=== PATIENT | male | born 1995 | race Caucasian/White ===

== ENCOUNTER 2020-12-10 20:45 | Inpatient (IN) | payer OTHER, SELFPAY ==
[2020-12-10] VITALS (10 sets, daily range): BP systolic 147–162; BP diastolic 70–96; PULSE 82–112; RESP 20–32; TEMP 36.2; O2SAT 96–100; BMI 26.3
--- NOTE | 2020-12-10 20:53 | DI.CT.S_ITS ---
PROCEDURE: CT CERVICAL SPINE WO CON INDICATIONS: Trauma TECHNIQUE: Noncontrast 3 mm thick sections acquired from the skull base to the T4 level. Sagittal and coronal reformats were then constructed. For radiation dose reduction, the following was used: automated exposure control, adjustment of mA and/or kV according to patient size. COMPARISON: None. FINDINGS: Image quality: Excellent. Bones: No fractures or dislocations. Visualized superior ribs are intact. Soft tissues: Small left apical pneumothorax. Left 6th rib fracture at the costovertebral junction. IMPRESSION: No cervical spine fracture Small left apical pneumothorax Left 6th rib fracture at the costovertebral junction. Dictated by: Bryson Mejía M.D. on 12/10/2020 at 21:55 Approved by: Bryson Mejía M.D. on 12/10/2020 at 21:58
--- NOTE | 2020-12-10 20:53 | DI.CT.S_ITS ---
PROCEDURE: CT CHEST ABD PEL W CON INDICATIONS: Trauma TECHNIQUE: After the administration of intravenous contrast, 5 mm thick sections acquired from the lung apices to the symphysis. 2.5 mm thick coronal and sagittal reformats were acquired. Additional 7 mm thick coronal maximum intensity projection (MIP) reformats acquired through the lungs. Optional 10-minute delayed imaging may be performed from the kidneys to the bladder. For radiation dose reduction, the following was used: automated exposure control, adjustment of mA and/or kV according to patient size. COMPARISON: None. FINDINGS: Image quality: Excellent. CHEST: Lungs: Small apical left pneumothorax. No pleural effusion. Left patchy opacity in the lower lobe, probably contusion. Mediastinum: No mediastinal hematomas. Heart size is normal. No pericardial effusion. Thoracic aorta and pulmonary arteries demonstrate normal size and enhancement. No mediastinal or hilar adenopathy. Esophagus is normal in caliber. No hiatal hernia. Chest wall: Nondisplaced fracture involving the left 6th rib, at the costovertebral junction image 118/3. ABDOMEN: Solid organs: Liver is normal in size and enhancement, without lacerations. The gallbladder is grossly unremarkable. Biliary system is non-dilated. Pancreas enhances normally, without transection. Spleen is normal in size and enhancement, without lacerations. No adrenal hematomas. Both kidneys enhance normally, without hydronephrosis or lacerations. Peritoneum and bowel: No free fluid or air. Unenhanced bowel loops demonstrate normal wall thickness and caliber. Nodes and vessels: No retroperitoneal or mesenteric adenopathy. Aorta and inferior vena cava are normal in size and enhancement. Miscellaneous: No ventral hernias. PELVIS: Genitourinary: Bladder wall thickness is normal. Miscellaneous: No inguinal hernias or adenopathy. Bones: Pelvic ring and hip joints appear intact. No vertebral compression fractures. IMPRESSION: Nondisplaced left 6th rib fracture at the costovertebral junction. Small apical left pneumothorax. Additional patchy opacity in the left lower lobe probably represents contusion and/or atelectasis. Findings were personally telephoned and discussed with Dr. William in the emergency department at 2200 hours 12/10/20. Dictated by: Bryson Mejía M.D. on 12/10/2020 at 21:58 Approved by: Bryson Mejía M.D. on 12/10/2020 at 22:06
--- NOTE | 2020-12-10 20:53 | DI.CT.S_ITS ---
PROCEDURE: CT HEAD/BRAIN WO CON INDICATIONS: Trauma TECHNIQUE: Noncontrast 4.5 mm thick angled axial sections acquired from the foramen magnum to the vertex, with coronal and sagittal reformats. For radiation dose reduction, the following was used: automated exposure control, adjustment of mA and/or kV according to patient size. COMPARISON: None. FINDINGS: Image quality: Excellent. CSF spaces: Basal cisterns are patent. No extra-axial fluid collections. Ventricles are normal in size and shape. Brain: No midline shift. No intracranial masses or hemorrhage. Lindsey-white matter interface is normal. Skull and face: Calvarium and visualized facial bones are intact, without suspicious lesions. Sinuses: Visualized sinuses and mastoids are clear. IMPRESSION: No acute intracranial process. Dictated by: Bryson Mejía M.D. on 12/10/2020 at 21:53 Approved by: Bryson Mejía M.D. on 12/10/2020 at 21:55
[2020-12-10] MEDS: ONDANSETRON 4 MG/2 ML INJ IV (21:07)
[2020-12-10] MEDS: HYDROMORPHONE 0.5 MG INJ IV ×2 (21:07→21:18)
[2020-12-10 21:09] LABS: Add Manual Diff / Slide Review NO; Basophils Absolute Auto 0 /uL (0-100); Basophils Percent Auto 0.2 % (0-2); Eosinophils Absolute Auto 0 /uL (0-450); Eosinophils Percent Auto 0.1 % (2-4); Hematocrit 45.9 % (41-53); Hemoglobin 15.3 g/dL (13.5-17.5); Lymphocytes Absolute Auto 1400 /uL (1100-4500); Lymphocytes Percent Auto 6.8 % (25-40); Mean Corpuscular HGB Conc 33.3 % (30-36); Mean Corpuscular Hemoglobin 30.2 PG (26-34); Mean Corpuscular Volume 90.9 fL (80-100); Monocytes Absolute Auto 1400 /uL (0-900); Monocytes Percent Auto 6.9 % (3-14); Neutrophils Absolute Auto 17200 /uL (1500-7000); Platelet Count 341 X10^3/uL (150-400); Red Blood Cell Count 5.05 X10^6/uL (4.5-5.9); Red Cell Distribution Width 13.1 % (11.6-14.8)
--- NOTE | 2020-12-10 21:09 | PC.NURSE ---
Pt's yellow metal necklace, cell phone and wallet given to friend at bedside at time of admission.
[2020-12-10 21:17] LABS: INR 1.1 (0.9-1.3); Prothrombin Time 12.2 SECONDS (10.1-12.7)
[2020-12-10 21:19] LABS: Creatine Kinase 337 U/L (55-170)
[2020-12-10 21:20] LABS: Alanine Aminotransferase 52 IU/L (<50); Albumin 4.8 g/dL (3.5-5.0); Albumin Globulin Ratio 1.7 (1.0-2.8); Alkaline Phosphatase 75 U/L (38-126); Aspartate Aminotransferase 54 IU/L (17-59); BUN Creatinine Ratio 20.2 (6-22); Bilirubin Total 0.3 mg/dL (0.2-1.3); Blood Urea Nitrogen 19 mg/dL (9-20); Calcium 10.2 mg/dL (8.4-10.2); Carbon Dioxide 28 mmol/L (22-32); Chloride 103 mmol/L (98-107); Estimated Glomerular Filt Rate > 60.0 mL/min (>60); Ethanol (ETOH) < 10 mg/dL; Globulin 2.9 g/dL (1.7-4.1); Glucose 116 mg/dL (70-100); HEMOLYSIS 16 (0-50); Lipase 147 U/L (23-300); Potassium 4.1 mmol/L (3.4-5.1); Sodium 138 mmol/L (137-145); Total Protein 7.7 g/dL (6.3-8.2)
[2020-12-10 21:32] LABS: Troponin I < 0.012 ng/mL (0.01-0.034)
[2020-12-10 21:35] LABS: CKMB % Relative Index 0.4 % (1.5-5.0); Creatine Kinase MB 1.37 ng/mL (<2.37)
[2020-12-10] MEDS: HYDROMORPHONE 1 MG INJ IV (21:37)
--- NOTE | 2020-12-10 21:42 | ED.TRAUMA ---
HPI - Trauma General Chief Complaint: Trauma Stated Complaint: fall down 15 to 20 stairs, ribs hurt Time Seen by Provider: 12/10/20 20:46 Source: patient Mode of arrival: Wheelchair Limitations: no limitations History of Present Illness HPI narrative: 25M nonsmoker without medical problems presents with a friend in the chief complaint of a fall down 15-20 stairs. He was at the top of his front porch stairs and tripped, falling down to the bottom. He denies any prodromal symptoms such as dizziness, weakness or lightheadedness. He did strike his head but denies any loss of consciousness and has full recall. He denies any alcohol or street drugs. He denies the use of blood thinners. He is activated as a modified trauma based on mechanism. His chief complaint is of significant pain in left posterior shoulder, posterior ribs and left hip. He denies any chest pain or shortness of breath. He denies any nausea or vomiting. He denies any abdominal pain or urinary complaints. MD complaint: fall, injury and pain Onset (ago): minute(s) Loss of Consciousness: no Location: head and back Location - Extremities: Left: shoulder Severity: severe Context: fall Associated symptoms: shortness of breath Related Data Home Medications Medication Instructions Recorded Confirmed bupropion HCl [Wellbutrin XL] 150 mg PO QAM 12/10/20 12/10/20 Allergies Allergy/AdvReac Type Severity Reaction Status Date / Time No Known Drug Allergies Allergy Verified 12/10/20 20:56 Review of Systems Constitutional Constitutional: Denies chills, Denies fatigue, Denies fever(s), Denies frequent falls, Reports headache(s), Denies lethargy and Denies weakness Eyes Eyes: Denies change in vision, Denies eye discharge, Denies irritation and Denies loss of vision ENT Ears, Nose, Mouth, and Throat: Denies change in voice, Denies dizziness, Reports headache(s), Denies neck pain, Denies sore throat and Denies throat swelling Cardiovascular Cardiovascular: Reports chest pain, Denies irregular heart rhythm, Denies lightheadedness, Denies palpitations, Reports dyspnea, Denies dyspnea on exertion and Denies orthopnea Respiratory Respiratory: Denies cough, Reports dyspnea, Denies dyspnea on exertion and Denies wheezing Gastrointestinal Gastrointestinal: Denies abdominal pain, Denies change in bowel habits, Denies diarrhea, Denies nausea and Denies vomiting Musculoskeletal Musculoskeletal: Reports abnormal gait, Reports back pain, Reports arthralgias, Denies neck pain and Denies numbness Integumentary/Breasts Skin/Breast: Denies pruritus, Denies erythema, Denies rash and Denies wounds Neurologic Neurologic: Reports abnormal gait, Denies behavioral changes, Denies confusion, Denies dizziness, Denies frequent falls, Reports headache(s), Denies loss of vision, Denies numbness and Denies weakness Psychiatric Psychiatric: Denies anxiety, Denies behavioral changes, Denies confusion, Denies depression, Denies homicidal ideation and Denies suicidal ideation Endocrine Endocrine: Denies fatigue, Denies flushing and Denies palpitations Hematologic/Lymphatic Hematologic/Lymphatic: Denies easy bruising Allergic/Immunologic Allergic/Immunologic: Denies urticaria, Denies throat swelling and Denies wheezing Patient History Social History Smoking Status: Never smoker Smoking Status: Never smoker alcohol intake frequency: 0-2 drinks per day Substance Use Type: does not use Exam Narrative Exam Narrative: GENERAL: [25] year old patient appears stated age. Well-nourished, well-developed patient, in obvious distress. GCS 15 HEAD: Abrasion to middle of forehead, no active bleeding or laceration. No evidence of depressed skull fracture EYES: Pupils equal round and reactive. No hyphema Extraocular motions intact. No scleral icterus. No injection or drainage. ENT: Nose without bleeding, purulent drainage. No nasal septal hematoma or hemotympanum Throat without erythema, tonsillar hypertrophy or exudate. Airway patent. NECK: Trachea midline. Non tender CARDIOVASCULAR: Regular rate and rhythm without murmurs, gallops, or rubs. RESPIRATORY: Clear to auscultation. Breath sounds equal bilaterally. No wheezes, rales, or rhonchi. Patient splinting, deep breath causing significant pain, left posterior rib tenderness to palpation GASTROINTESTINAL: Abdomen soft, non-tender, nondistended. EXTREMITIES: Decreased range of motion of left shoulder and left hip secondary to pain. No obvious deformity. No numbness, tingling or weakness. BACK: Nontender without deformity or crepitance. No flank tenderness. NEURO: AOx3. SKIN: No rash or erythema of visible areas Initial Vital Signs Initial Vital Signs: Vital Signs Temperature 97.1 F L 12/10/20 20:45 Pulse Rate 112 H 12/10/20 20:45 Respiratory Rate 30 H 12/10/20 20:45 Blood Pressure 148/96 H 12/10/20 20:45 Pulse Oximetry 100 12/10/20 20:45 Course Course Course Narrative: FAST exam demonstrates no free fluid Orders Ordered: ED Orders 12/10/20 20:52 EKG-12 Lead Stat 12/10/20 20:53 CT cervical spine wo con Stat CT chest abd pel w con Stat CT head/brain wo con Stat 12/10/20 20:58 Complete Blood Count AUTO DIFF Stat Comprehensive Metabolic Panel Stat Ethanol (ETOH) Stat Lipase Stat Prothrombin Time INR Stat Troponin & CK Cardiac Panel Stat Type and Screen Stat 12/10/20 22:31 XR chest 1V Stat Acetaminophen (Acetaminophen 325 Mg Tablet) 650 mg PO Q6HR CLARI Docusate Sodium (Docusate 100 Mg Capsule) 100 mg PO BID CLARI Hydromorphone HCl (Hydromorphone 0.5 Mg Inj) 0.5 mg IV Q4HR PRN PRN Reason: Pain, Moderate (4-6) Ibuprofen (Ibuprofen 600 Mg Tablet) 600 mg PO Q6HR PRN PRN Reason: Fever/Mild Pain (1-3) Naloxone HCl (Naloxone 0.4 Mg/Ml Vial) 0.2 mg IV Q2MIN PRN PRN Reason: Opiate Reversal Ondansetron HCl (Ondansetron 4 Mg/2 Ml Inj) 4 mg IV Q6HR PRN PRN Reason: Nausea And Vomiting Oxycodone HCl (Oxycodone Ir 10 Mg Tablet) 10 mg PO Q4HR PRN PRN Reason: Pain, Severe (7-10) Oxycodone HCl (Oxycodone Ir 5 Mg Tablet) 5 mg PO Q4HR PRN PRN Reason: Pain, Moderate (4-6) Polyethylene Glycol (Polyethylene Glycol 3350 17 Gm Powd.Pack) 17 gm PO DAILY CLARI Sennosides (Sennosides 8.6 Mg Tablet) 17.2 mg PO BEDTIME CLARI Discontinued Medications Diphenhydramine HCl (Diphenhydramine 50 Mg/Ml Vial) 25 mg IV NOW ONE Stop: 12/10/20 22:04 Last Admin: 12/10/20 22:09 Dose: 25 mg Documented by: HOLGER Hydromorphone HCl (Hydromorphone 0.5 Mg Inj) 0.5 mg IV NOW ONE Stop: 12/10/20 21:02 Last Admin: 12/10/20 21:07 Dose: 0.5 mg Documented by: HOLGER Hydromorphone HCl (Hydromorphone 0.5 Mg Inj) 0.5 mg IV NOW ONE Stop: 12/10/20 21:11 Last Admin: 12/10/20 21:18 Dose: 0.5 mg Documented by: HOLGER Hydromorphone HCl (Hydromorphone 1 Mg Inj) 1 mg IV NOW ONE Stop: 12/10/20 21:32 Last Admin: 12/10/20 21:37 Dose: 1 mg Documented by: HOLGER Ondansetron HCl (Ondansetron 4 Mg/2 Ml Inj) 4 mg IV NOW ONE Stop: 12/10/20 21:02 Last Admin: 12/10/20 21:07 Dose: 4 mg Documented by: HOLGER Vital Signs Vital signs: Vital Signs - 8 hr 12/10/20 20:45 12/10/20 20:54 12/10/20 21:00 Temperature 97.1 F L Pulse Rate 112 H 95 H 101 H Respiratory Rate 30 H 28 H 26 H Blood Pressure 148/96 H 162/79 H Pulse Oximetry 100 98 98 12/10/20 21:20 12/10/20 21:22 12/10/20 21:30 Temperature Pulse Rate 97 H 89 96 H Respiratory Rate 32 H 25 H 25 H Blood Pressure 151/78 H 161/76 H Pulse Oximetry 98 98 12/10/20 21:45 12/10/20 22:00 12/10/20 22:14 Temperature Pulse Rate 88 86 82 Respiratory Rate 20 22 31 H Blood Pressure 153/70 H 151/70 H Pulse Oximetry 96 96 97 12/10/20 22:15 Temperature Pulse Rate Respiratory Rate Blood Pressure 147/72 H Pulse Oximetry MDM - Trauma Lab Data Result diagrams: 12/10/20 20:58 12/10/20 20:58 Labs: Lab Results 12/10/20 12/10/20 12/10/20 Range/Units 20:58 20:58 20:58 WBC 20.0 H (4.5-11.0) X10^3/uL RBC 5.05 (4.5-5.9) X10^6/uL Hgb 15.3 (13.5-17.5) g/dL Hct 45.9 (41-53) % MCV 90.9 (80-100) fL MCH 30.2 (26-34) PG MCHC 33.3 (30-36) % RDW 13.1 (11.6-14.8) % Plt Count 341 (150-400) X10^3/uL Neut % (Auto) 86.0 H (50-75) % Lymph % (Auto) 6.8 L (25-40) % Heard % (Auto) 6.9 (3-14) % Eos % (Auto) 0.1 L (2-4) % Baso % (Auto) 0.2 (0-2) % Neut # (Auto) 38378 H (7334-0552) /uL Lymph # (Auto) 1400 (2877-1019) /uL Heard # (Auto) 1400 H (0-900) /uL Eos # (Auto) 0 (0-450) /uL Baso # (Auto) 0 (0-100) /uL PT 12.2 (10.1-12.7) SECONDS INR 1.1 (0.9-1.3) Sodium (137-145) mmol/L Potassium (3.4-5.1) mmol/L Chloride (98-107) mmol/L Carbon Dioxide (22-32) mmol/L BUN (9-20) mg/dL Creatinine (0.66-1.25) mg/dL Estimated GFR (>60) mL/min BUN/Creatinine Ratio (6-22) Glucose (70-100) mg/dL Calcium (8.4-10.2) mg/dL Total Bilirubin (0.2-1.3) mg/dL AST (17-59) IU/L ALT (<50) IU/L Alkaline Phosphatase (38-126) U/L Total Creatine Kinase 337 H (55-170) U/L CK-MB (CK-2) 1.37 (<2.37) ng/mL CK-MB (CK-2) Rel Index 0.4 L (1.5-5.0) % Troponin I < 0.012 (0.01-0.034) ng/mL Total Protein (6.3-8.2) g/dL Albumin (3.5-5.0) g/dL Globulin (1.7-4.1) g/dL Albumin/Globulin Ratio (1.0-2.8) Lipase (23-300) U/L Ethyl Alcohol ( - 10) mg/dL Blood Type Antibody Screen 12/10/20 12/10/20 Range/Units 20:58 20:58 WBC (4.5-11.0) X10^3/uL RBC (4.5-5.9) X10^6/uL Hgb (13.5-17.5) g/dL Hct (41-53) % MCV (80-100) fL MCH (26-34) PG MCHC (30-36) % RDW (11.6-14.8) % Plt Count (150-400) X10^3/uL Neut % (Auto) (50-75) % Lymph % (Auto) (25-40) % Heard % (Auto) (3-14) % Eos % (Auto) (2-4) % Baso % (Auto) (0-2) % Neut # (Auto) (0222-9705) /uL Lymph # (Auto) (7728-4548) /uL Heard # (Auto) (0-900) /uL Eos # (Auto) (0-450) /uL Baso # (Auto) (0-100) /uL PT (10.1-12.7) SECONDS INR (0.9-1.3) Sodium 138 (137-145) mmol/L Potassium 4.1 (3.4-5.1) mmol/L Chloride 103 (98-107) mmol/L Carbon Dioxide 28 (22-32) mmol/L BUN 19 (9-20) mg/dL Creatinine 0.94 (0.66-1.25) mg/dL Estimated GFR > 60.0 (>60) mL/min BUN/Creatinine Ratio 20.2 (6-22) Glucose 116 H (70-100) mg/dL Calcium 10.2 (8.4-10.2) mg/dL Total Bilirubin 0.3 (0.2-1.3) mg/dL AST 54 (17-59) IU/L ALT 52 H (<50) IU/L Alkaline Phosphatase 75 (38-126) U/L Total Creatine Kinase (55-170) U/L CK-MB (CK-2) (<2.37) ng/mL CK-MB (CK-2) Rel Index (1.5-5.0) % Troponin I (0.01-0.034) ng/mL Total Protein 7.7 (6.3-8.2) g/dL Albumin 4.8 (3.5-5.0) g/dL Globulin 2.9 (1.7-4.1) g/dL Albumin/Globulin Ratio 1.7 (1.0-2.8) Lipase 147 (23-300) U/L Ethyl Alcohol < 10 ( - 10) mg/dL Blood Type O Negative Antibody Screen Negative Urine Dip Bedside Urine Glucose Negative Bedside Urine Bilirubin - Negative Bedside Urine Ketone - Negative Urine Specific Marshall 1.015 Bedside Urine Occult Blood - Negative Bedside Urine pH 6.5 Bedside Urine Protein - Negative Bedside Urine Urobilinogen - Negative Bedside Urine Nitrite - Negative Bedside Urine Leukocytes - Negative Esterase Imaging Data CT scan - head: Radiologist's Impression: [address] [id number] Scan ReportSigned Patient: Tony Jon KMR#: [id number]: 1995Acct:[id number]/Sex: 25 / MDate of Service: 12/10/20Loc: EDAccession Number: [id number] Procedure: CT head/brain wo con Ordering Provider: Mt William D.O. PROCEDURE: CT HEAD/BRAIN WO CON INDICATIONS: Trauma TECHNIQUE: Noncontrast 4.5 mm thick angled axial sections acquired from the foramen magnum to the vertex, with coronal and sagittal reformats. For radiation dose reduction, the following was used: automated exposure control, adjustment of mA and/or kV according to patient size. COMPARISON: None. FINDINGS: Image quality: Excellent. CSF spaces: Basal cisterns are patent. No extra-axial fluid collections. Ventricles are normal in size and shape. Brain: No midline shift. No intracranial masses or hemorrhage. Lindsey-white matter interface is normal. Skull and face: Calvarium and visualized facial bones are intact, without suspicious lesions. Sinuses: Visualized sinuses and mastoids are clear. IMPRESSION: No acute intracranial process. Dictated by: Bryson Mejía M.D. on 12/10/2020 at 21:53 Approved by: Bryson Mejía M.D. on 12/10/2020 at 21:55 CT - cervical spine: Radiologist's Impression: [address] [id number] Scan ReportSigned Patient: Tony Jon KMR#: [id number]: 1995Acct:[id number]/Sex: 25 / MDate of Service: 12/10/20Loc: EDAccession Number: [id number] Procedure: CT cervical spine wo con Ordering Provider: Mt William D.O. PROCEDURE: CT CERVICAL SPINE WO CON INDICATIONS: Trauma TECHNIQUE: Noncontrast 3 mm thick sections acquired from the skull base to the T4 level. Sagittal and coronal reformats were then constructed. For radiation dose reduction, the following was used: automated exposure control, adjustment of mA and/or kV according to patient size. COMPARISON: None. FINDINGS: Image quality: Excellent. Bones: No fractures or dislocations. Visualized superior ribs are intact. Soft tissues: Small left apical pneumothorax. Left 6th rib fracture at the costovertebral junction. IMPRESSION: No cervical spine fracture Small left apical pneumothorax Left 6th rib fracture at the costovertebral junction. Dictated by: Bryson Mejía M.D. on 12/10/2020 at 21:55 Approved by: Bryson Mejía M.D. on 12/10/2020 at 21:58 CT scan - chest: Radiologist's Impression: Tony Jon K 25 M [address] [id number] Scan ReportSigned Patient: Tony Jon KMR#: [id number]: 1995Acct:[id number]/Sex: 25 / MDate of Service: 12/10/20Loc: EDAccession Number: [id number] Procedure: CT chest abd pel w con Ordering Provider: Mt William D.O. PROCEDURE: CT CHEST ABD PEL W CON INDICATIONS: Trauma TECHNIQUE: After the administration of intravenous contrast, 5 mm thick sections acquired from the lung apices to the symphysis. 2.5 mm thick coronal and sagittal reformats were acquired. Additional 7 mm thick coronal maximum intensity projection (MIP) reformats acquired through the lungs. Optional 10-minute delayed imaging may be performed from the kidneys to the bladder. For radiation dose reduction, the following was used: automated exposure control, adjustment of mA and/or kV according to patient size. COMPARISON: None. FINDINGS: Image quality: Excellent. CHEST: Lungs: Small apical left pneumothorax. No pleural effusion. Left patchy opacity in the lower lobe, probably contusion. Mediastinum: No mediastinal hematomas. Heart size is normal. No pericardial effusion. Thoracic aorta and pulmonary arteries demonstrate normal size and enhancement. No mediastinal or hilar adenopathy. Esophagus is normal in caliber. No hiatal hernia. Chest wall: Nondisplaced fracture involving the left 6th rib, at the costovertebral junction image 118/3. ABDOMEN: Solid organs: Liver is normal in size and enhancement, without lacerations. The gallbladder is grossly unremarkable. Biliary system is non-dilated. Pancreas enhances normally, without transection. Spleen is normal in size and enhancement, without lacerations. No adrenal hematomas. Both kidneys enhance normally, without hydronephrosis or lacerations. Peritoneum and bowel: No free fluid or air. Unenhanced bowel loops demonstrate normal wall thickness and caliber. Nodes and vessels: No retroperitoneal or mesenteric adenopathy. Aorta and inferior vena cava are normal in size and enhancement. Miscellaneous: No ventral hernias. PELVIS: Genitourinary: Bladder wall thickness is normal. Miscellaneous: No inguinal hernias or adenopathy. Bones: Pelvic ring and hip joints appear intact. No vertebral compression fractures. IMPRESSION: Nondisplaced left 6th rib fracture at the costovertebral junction. Small apical left pneumothorax. Additional patchy opacity in the left lower lobe probably represents contusion and/or atelectasis. Findings were personally telephoned and discussed with Dr. William in the emergency department at 2200 hours 12/10/20. Dictated by: Bryson Mejía M.D. on 12/10/2020 at 21:58 Approved by: Bryson Mejía M.D. on 12/10/2020 at 22:0 MDM Narrative Medical decision making narrative: 25M trauma patient with fall down 15-20 stairs is hemodynamically stable and not currently requiring supplemental oxygen. He will require hospitalization for serial exams, monitoring, and repeat imaging as his combination of pulmonary contusion and pneumothorax put him at high risk of deterioration. Furthermore, he has required 3 doses of IV pain medication in the ED. Patient admitted to surgical service. Patient understands and agrees with the plan. Questions answered to his apparent satisfaction. Discharge Plan Departure Patient Disposition: Admitted as Observation Clinical Impression: Pneumothorax Qualifiers: Pneumothorax type: traumatic Encounter type: initial encounter Qualified Code(s): S27.0XXA - Traumatic pneumothorax, initial encounter Contusion of left lung Qualifiers: Encounter type: initial encounter Qualified Code(s): S27.321A - Contusion of lung, unilateral, initial encounter Closed rib fracture Qualifiers: Encounter type: initial encounter Rib fracture type: single rib Laterality: left Qualified Code(s): S22.32XA - Fracture of one rib, left side, initial encounter for closed fracture Admit Date/Time: 12/10/20 22:35 Admit Provider: Josee Kaplan
[2020-12-10] MEDS: diphenhydrAMINE 50 MG/ML VIAL 25 MG IV (22:09)
--- NOTE | 2020-12-10 22:16 | PC.NURSE ---
Pt reports pain tolerable at 5/10 but c/o itching. No hives/airway involvement. Dr William notified, order received for benedryl IV. Dr William to bedside to update pt on test results and plan of care.
--- NOTE | 2020-12-10 22:31 | DI.RAD.S_ITS ---
PROCEDURE: XR CHEST 1V INDICATIONS: trauma, rib fx. contusion, pneumo TECHNIQUE: One view of the chest was acquired. COMPARISON: [facility], CT, CT CHEST ABD PEL W CON, 12/10/2020, 20:52. [facility], CR, XR CHEST 2V, 12/11/2020, 8:35. FINDINGS: Surgical changes and devices: None. Lungs and pleura: On this expiratory view, there is low lung volumes seen. A small left apical pneumothorax can be seen. Interstitial prominence is seen throughout which is attributed to expiratory technique. Mediastinum: Mediastinal contours appear normal. Heart size is normal. Bones and chest wall: No suspicious bony lesions. The known left 6th rib fracture is not well seen by plain film. Overlying soft tissues appear unremarkable. IMPRESSION: There is a small left apical pneumothorax, which is slightly increased in size compared to prior imaging. Please consider short-term follow-up. Note: No significant discrepancy from the preliminary report. Dictated by: Mehul Martin M.D. on 12/11/2020 at 7:44 Approved by: Mehul Martin M.D. on 12/11/2020 at 7:46
[2020-12-10 23:10] LABS: COVID19 -Nasal RAPID Negative (Negative)
[2020-12-10] MEDS: OXYCODONE IR 10 MG TABLET PO (23:20)
[2020-12-11] VITALS (8 sets, daily range): BP systolic 130–150; BP diastolic 58–83; PULSE 51–84; RESP 16–20; TEMP 36.2–36.9; O2SAT 95–98
[2020-12-11] MEDS: HYDROMORPHONE 0.5 MG INJ IV ×4 (00:01→10:52)
[2020-12-11] MEDS: ACETAMINOPHEN 325 MG TABLET 650 MG PO ×5 (00:24→23:56)
[2020-12-11] MEDS: LIDOCAINE PATCH 1 EACH ADH..PATCH TOP (01:11)
[2020-12-11] MEDS: IBUPROFEN 600 MG TABLET PO ×2 (02:48→10:51)
[2020-12-11] MEDS: OXYCODONE IR 10 MG TABLET PO ×6 (02:50→23:55)
[2020-12-11] MEDS: diphenhydrAMINE 25 MG TABLET PO ×2 (02:50→18:26)
[2020-12-11] MEDS: HYDROMORPHONE 1 MG INJ IV ×2 (05:33→16:17)
--- NOTE | 2020-12-11 05:42 | PC.NURSE ---
Addendum entered by Kari Morrison R.N. 12/11/20 05:58: Report given to Rachel at 0555. Addendum entered by Kari Morrison R.N. 12/11/20 05:51: Provider contacted to increase or add additional pain medicine to current medication regime, pt unable to tolerate pain w/ rxed at this moment. Provider OKd one time dose 1 mg IV dilaudid. Provider informed this RN that Pt was supposed to have been admitted to the ICU for observation instead of acute care. Coordinator and ICU nurses were notified, and transfer began at 0550. Original Note: Pt stable on admit to floor, able to slowly ambulate from gurney to bed with minimal assistance and no reported dizziness. SOB on exertion, pain on inspiration. Pain localized to L shoulder and ribcage, L hip on ambulation. Pt in no cardiovascular or respiratory distress, +CSM all extremities, LUE weaker than RUE d/t increased pain but no reported numbness or tingling. PERRLA, AOx4, no reported LOC. Pt oriented to room, instructed on hospital policies, and settled.
[2020-12-11 06:09] LABS: Add Manual Diff / Slide Review NO; Basophils Absolute Auto 0 /uL (0-100); Basophils Percent Auto 0.3 % (0-2); Eosinophils Absolute Auto 100 /uL (0-450); Eosinophils Percent Auto 1.1 % (2-4); Hemoglobin 14.5 g/dL (13.5-17.5); Lymphocytes Absolute Auto 2700 /uL (1100-4500); Lymphocytes Percent Auto 21.9 % (25-40); Mean Corpuscular HGB Conc 32.3 % (30-36); Mean Corpuscular Volume 93.1 fL (80-100); Monocytes Absolute Auto 1400 /uL (0-900); Monocytes Percent Auto 10.9 % (3-14); Neutrophils Absolute Auto 8200 /uL (1500-7000); Neutrophils Percent Auto 65.8 % (50-75); Platelet Count 279 X10^3/uL (150-400); Red Blood Cell Count 4.83 X10^6/uL (4.5-5.9); Red Cell Distribution Width 13.5 % (11.6-14.8); White Blood Cell Count 12.4 X10^3/uL (4.5-11.0)
[2020-12-11 06:21] LABS: BUN Creatinine Ratio 16.1 (6-22); Blood Urea Nitrogen 18 mg/dL (9-20); Calcium 9.4 mg/dL (8.4-10.2); Carbon Dioxide 35 mmol/L (22-32); Chloride 100 mmol/L (98-107); Estimated Glomerular Filt Rate > 60.0 mL/min (>60); Glucose 91 mg/dL (70-100); HEMOLYSIS < 15 (0-50); Magnesium 1.9 mg/dL (1.6-2.3); Potassium 4.4 mmol/L (3.4-5.1); Sodium 139 mmol/L (137-145)
--- NOTE | 2020-12-11 07:21 | PC.NURSE ---
AM Note-Patient brought to ICU Room 229 at 0600, A/Ox4. Already on telemetry, SB/SR, VSS, placed on continuous oximetry, SpO2 97%, lung sounds dim on left, pain with cough and deep breathing. He was medicated for just prior to being transferred, has limited ROM to LUE and c/o left shoulder and hip pain, ice pack applied.
--- NOTE | 2020-12-11 08:00 | DI.RAD.S_ITS ---
PROCEDURE: XR CHEST 2V INDICATIONS: pulmonary contusion; interval change TECHNIQUE: 2 views of the chest were acquired. COMPARISON: [facility], CR, XR SHOULDER LT MIN 2V, 12/11/2020, 8:35. [facility], CT, CT CHEST ABD PEL W CON, 12/10/2020, 20:52. [facility], CR, XR CHEST 1V, 12/10/2020, 22:57. FINDINGS: Surgical changes and devices: None. Lungs and pleura: There is a trace left apical pneumothorax. The right lung is clear. No jose focal consolidations can be seen on either side. Mediastinum: Mediastinal contours are normal. Heart size is normal. Bones and chest wall: No suspicious bony abnormalities. The previously seen rib fracture is not well seen by CT. Soft tissues appear unremarkable. IMPRESSION: Trace left apical pneumothorax. No focal pulmonary consolidation can be seen. Dictated by: Mehul Martin M.D. on 12/11/2020 at 8:02 Approved by: Mehul Martin M.D. on 12/11/2020 at 8:04
[2020-12-11] MEDS: polyethylene glycoL 3350 17 GM POWD.PACK PO (08:08)
[2020-12-11] MEDS: SODIUM CHLORIDE 0.9% FLUSH 10 ML IV (08:08)
[2020-12-11] MEDS: DOCUSATE 100 MG CAPSULE PO ×2 (08:08→21:01)
[2020-12-11] MEDS: buPROPion XL 150 MG TAB PO (08:08)
--- NOTE | 2020-12-11 08:32 | DI.RAD.S_ITS ---
PROCEDURE: XR SHOULDER LT MIN 2V INDICATIONS: trauma, pain with ROM TECHNIQUE: 3 views of the shoulder were acquired. COMPARISON: [facility], CR, XR CHEST 2V, 12/11/2020, 8:35. [facility], CR, XR CHEST 1V, 12/10/2020, 22:57. [facility], CT, CT CHEST ABD PEL W CON, 12/10/2020, 20:52. [facility], CT, CT CERVICAL SPINE WO CON, 12/10/2020, 20:52. FINDINGS: Bones: No displaced fractures are seen. The left distal clavicle is mildly high-riding. No suspicious bony lesions. Visualized ribs appear intact. Soft tissues: No suspicious soft tissue calcifications. A trace left apical pneumothorax is seen. The previously seen rib fracture is not well seen by plain film. IMPRESSION: Potential left acromioclavicular separation. If clinically appropriate, please consider a short-term follow-up study of both shoulders, performed without and with weights. Trace left apical pneumothorax again seen. No jose fracture can be seen by plain film. If it would be helpful for clinical management decision making, please consider a dedicated shoulder MRI for further evaluation (assuming that there is no contraindication). If there is strong clinical concern for a labral abnormality, this should be performed according to the arthrogram protocol. Dictated by: Mehul Martin M.D. on 12/11/2020 at 8:04 Approved by: Mehul Martin M.D. on 12/11/2020 at 8:08
[2020-12-11] MEDS: SODIUM CHLORIDE 0.9% 1,000 ML 125 ML IV ×2 (08:49→17:52)
--- NOTE | 2020-12-11 10:29 | P.HP_ITS ---
History of Present Illness History of Present Illness Date Patient Seen: 12/11/20 Time Patient Seen: 10:29 Chief complaint: fall down 15 to 20 stairs, ribs hurt Narrative: This is a 25 year old man without significant medical history, who came into the ER during the night after falling down a flight of concrete stairs. He denies LOC/dizziness prior to his fall. He says he was just not paying close attention and was looking at his phone. He lost his footing and fell down 15-20 stairs, hitting his forehead, left shoulder, chest wall, and left hip on the way down. He denies any loss of consciousness and has full recall. His friend was present and witnessed the events. He denies any alcohol or street drugs. He denies the use of blood thinners. In the ER he was CT'ed from head to groin, with a left sixth rib non-displaced fracture, tiny apical left pneumothoroax, and left pulmonary contusion found. His pain was not well controlled in the ER, and he was admitted for pulmonary toilet, monitoring of the pulmonary contusion and pneumothorax, and pain control. This morning his left upper back, left hip, and left shoulder are quite painful, per him, even with 1 mg of IV Dilaudid, and 10 mg of p.o. oxycodone on board. ROS: Reports ?excruciating? left hip pain, next chest wall pain, left upper back pain, and left shoulder pain. He denies headache, nausea, abdominal pain, confusion, blurry vision, double vision. He denies any new pains to arisen since admission. Thirteen system review is otherwise negative other than as mentioned below and in HPI. PE: GENERAL: Alert, comfortable. Appears stated age. Answers questions promptly and appropriately. Vital signs noted. HENT: Clean abrasion on the center of the forehead, without active bleeding, or surrounding ecchymosis. Otherwise normocephalic, atraumatic. Hearing intact. EYES: Conjunctiva pink, sclera white, no periorbital swelling. CARDIOVASCULAR: Regular rate. No pedal edema. RESPIRATORY: Non-tachypneic, breathing comfortably on room air at rest. Splinting of left chest when he coughs or moves GASTROINTESTINAL: Abdomen soft and non-distended, nontender, no masses, hernias GENITALURINARY: No right flank tenderness. Significant left flank tenderness, associated with left rib fracture Back: CT and L-spine are nontender with no step-offs and no ecchymoses; signifi cant tenderness to palpation just below the left scapula MUSCULOSKELETAL: Equal tone and mass bilaterally. Right arm full range of motion, left arm limited range of motion at the shoulder, limited by pain. Patient is not able to raise his arm above shoulder level. No significant ecchymoses, 5/5 strength and sensation in the right upper extremity. 5/5 sensation, with strength exam limited by pain. Tenderness over soft tissue of left lateral hip and thigh, without ecchymoses; 5/5 strength and sensation in the lower extremities SKIN: Warm, dry, soft, appropriate color for ethnicity. No other lesions, rashes, or wounds. NEURO: Alert and Oriented X 3. No gross sensory deficits, or cognitive issues. PSYCH: Appropriate affect and mood. Patient History Family & Social History Social History: household members friend(s) Prior Living Arrangements House Safety & Behavioral: Feels Safe in Current Yes Environment Been Physically Hurt or No Threatened By a Person Suicidal Ideation Description None Suicide Plan Description No Plan Tobacco & Substance use: Smoking Status Never smoker alcohol intake former alcohol intake frequency 0-2 drinks per day Substance Use Type former substance user Meds Home Medications and Allergies Home Medications Medication Instructions Recorded Confirmed Type bupropion HCl [Wellbutrin XL] 150 mg PO QAM 12/10/20 12/10/20 History Allergies Allergy/AdvReac Type Severity Reaction Status Date / Time No Known Drug Allergies Allergy Verified 12/10/20 20:56 Exam Vital Signs (past 8 hours): - 12/11/20 05:00 12/11/20 06:00 12/11/20 08:15 Temperature 98.1 F 98.2 F Pulse Rate 67 56 L 61 Respiratory Rate 16 16 18 Blood Pressure 133/69 138/83 139/62 Pulse Oximetry 98 97 95 Oxygen Delivery Method Room Air Oxygen Flow Rate [address] scan - abdomen: My impression: Tiny apical pneumothorax, Fairly visible rib fracture Radiologist's impression: PROCEDURE: CT HEAD/BRAIN WO CON INDICATIONS: Trauma TECHNIQUE: Noncontrast 4.5 mm thick angled axial sections acquired from the foramen magnum to the vertex, with coronal and sagittal reformats. For radiation dose reduction, the following was used: automated exposure control, adjustment of mA and/or kV according to patient size. COMPARISON: None. FINDINGS: Image quality: Excellent. CSF spaces: Basal cisterns are patent. No extra-axial fluid collections. Ventricles are normal in size and shape. Brain: No midline shift. No intracranial masses or hemorrhage. Lindsey-white matter interface is normal. Skull and face: Calvarium and visualized facial bones are intact, without suspicious lesions. Sinuses: Visualized sinuses and mastoids are clear. IMPRESSION: No acute intracranial process. Dictated by: Bryson Mejía M.D. on 12/10/2020 at 21:53 Approved by: Bryson Mejía M.D. on 12/10/2020 at 21:55 CT - cervical spine: Radiologist's Impression: [address] [id number] Scan ReportSigned Patient: Tony Jon KMR#: [id number]: 1995Acct:[id number]/Sex: 25 / MDate of Service: 12/10/20Loc: EDAccession Number: [id number] Procedure: CT cervical spine wo con Ordering Provider: Mt William D.O. PROCEDURE: CT CERVICAL SPINE WO CON INDICATIONS: Trauma TECHNIQUE: Noncontrast 3 mm thick sections acquired from the skull base to the T4 level. Sagittal and coronal reformats were then constructed. For radiation dose reduction, the following was used: automated exposure control, adjustment of mA and/or kV according to patient size. COMPARISON: None. FINDINGS: Image quality: Excellent. Bones: No fractures or dislocations. Visualized superior ribs are intact. Soft tissues: Small left apical pneumothorax. Left 6th rib fracture at the costovertebral junction. IMPRESSION: No cervical spine fracture Small left apical pneumothorax Left 6th rib fracture at the costovertebral junction. Dictated by: Bryson Mejía M.D. on 12/10/2020 at 21:55 Approved by: Bryson Mejía M.D. on 12/10/2020 at 21:58 CT scan - chest: Radiologist's Impression: Tony Jon K 25 M [address] [id number] Scan ReportSigned Patient: Tony Jon KMR#: [id number]: 1995Acct:[id number]/Sex: 25 / MDate of Service: 12/10/20Loc: EDAccession Number: [id number] Procedure: CT chest abd pel w con Ordering Provider: Mt William D.O. PROCEDURE: CT CHEST ABD PEL W CON INDICATIONS: Trauma TECHNIQUE: After the administration of intravenous contrast, 5 mm thick sections acquired from the lung apices to the symphysis. 2.5 mm thick coronal and sagittal reformats were acquired. Additional 7 mm thick coronal maximum intensity projection (MIP) reformats acquired through the lungs. Optional 10-minute delayed imaging may be performed from the kidneys to the bladder. For radiation dose reduction, the following was used: automated exposure control, adjustment of mA and/or kV according to patient size. COMPARISON: None. FINDINGS: Image quality: Excellent. CHEST: Lungs: Small apical left pneumothorax. No pleural effusion. Left patchy opacity in the lower lobe, probably contusion. Mediastinum: No mediastinal hematomas. Heart size is normal. No pericardial effusion. Thoracic aorta and pulmonary arteries demonstrate normal size and enhancement. No mediastinal or hilar adenopathy. Esophagus is normal in caliber. No hiatal hernia. Chest wall: Nondisplaced fracture involving the left 6th rib, at the costovertebral junction image 118/3. ABDOMEN: Solid organs: Liver is normal in size and enhancement, without lacerations. The gallbladder is grossly unremarkable. Biliary system is non-dilated. Pancreas enhances normally, without transection. Spleen is normal in size and enhancement, without lacerations. No adrenal hematomas. Both kidneys enhance normally, without hydronephrosis or lacerations. Peritoneum and bowel: No free fluid or air. Unenhanced bowel loops demonstrate normal wall thickness and caliber. Nodes and vessels: No retroperitoneal or mesenteric adenopathy. Aorta and inferior vena cava are normal in size and enhancement. Miscellaneous: No ventral hernias. PELVIS: Genitourinary: Bladder wall thickness is normal. Miscellaneous: No inguinal hernias or adenopathy. Bones: Pelvic ring and hip joints appear intact. No vertebral compression fractures. IMPRESSION: Nondisplaced left 6th rib fracture at the costovertebral junction. Small apical left pneumothorax. Additional patchy opacity in the left lower lobe probably represents contusion and/or atelectasis. Findings were personally telephoned and discussed with Dr. William in the emergency department at 2200 hours 12/10/20. Chest x-ray: My impression: I honestly can not see the pneumothorax on the chest x- rays. It is clearly visible but very tiny on the chest CT scan. No evidence of significantly blooming pulmonary contusion Radiologist's impression: X-ray last night and this morning both show a tiny left apical pneumothorax, without significant change between the 2 films Shoulder x-ray: My impression: I discussed this with the orthopedic surgeon on-call, who felt that the AC separation was relatively minor Radiologist's impression: AC separation Labs Result Diagrams: 12/11/20 05:55 12/11/20 05:55 Labs: Laboratory Results - last 24 hr 12/10/20 12/10/20 12/10/20 20:58 20:58 20:58 WBC 20.0 H RBC 5.05 Hgb 15.3 Hct 45.9 MCV 90.9 MCH 30.2 MCHC 33.3 RDW 13.1 Plt Count 341 Neut % (Auto) 86.0 H Lymph % (Auto) 6.8 L [place] % (Auto) 6.9 Eos % (Auto) 0.1 L Baso % (Auto) 0.2 Neut # (Auto) 20369 H Lymph # (Auto) 1400 [place] # (Auto) 1400 H Eos # (Auto) 0 Baso # (Auto) 0 PT 12.2 INR 1.1 Sodium Potassium Chloride Carbon Dioxide BUN Creatinine Estimated GFR BUN/Creatinine Ratio Glucose Calcium Magnesium Total Bilirubin AST ALT Alkaline Phosphatase Total Creatine Kinase 337 H CK-MB (CK-2) 1.37 CK-MB (CK-2) Rel Index 0.4 L Troponin I < 0.012 Total Protein Albumin Globulin Albumin/Globulin Ratio Lipase Nasal Screen MRSA (PCR) Ethyl Alcohol SARS-CoV-2 (PCR) Blood Type Antibody Screen 12/10/20 12/10/20 12/10/20 20:58 20:58 22:20 WBC RBC Hgb Hct MCV MCH MCHC RDW Plt Count Neut % (Auto) Lymph % (Auto) [place] % (Auto) Eos % (Auto) Baso % (Auto) Neut # (Auto) Lymph # (Auto) [place] # (Auto) Eos # (Auto) Baso # (Auto) PT INR Sodium 138 Potassium 4.1 Chloride 103 Carbon Dioxide 28 BUN 19 Creatinine 0.94 Estimated GFR > 60.0 BUN/Creatinine Ratio 20.2 Glucose 116 H Calcium 10.2 Magnesium Total Bilirubin 0.3 AST 54 ALT 52 H Alkaline Phosphatase 75 Total Creatine Kinase CK-MB (CK-2) CK-MB (CK-2) Rel Index Troponin I Total Protein 7.7 Albumin 4.8 Globulin 2.9 Albumin/Globulin Ratio 1.7 Lipase 147 Nasal Screen MRSA (PCR) Ethyl Alcohol < 10 SARS-CoV-2 (PCR) Negative Blood Type O Negative Antibody Screen Negative 12/11/20 12/11/20 12/11/20 05:55 05:55 06:30 WBC 12.4 H RBC 4.83 Hgb 14.5 Hct 45.0 MCV 93.1 MCH 30.0 MCHC 32.3 RDW 13.5 Plt Count 279 Neut % (Auto) 65.8 D Lymph % (Auto) 21.9 L [place] % (Auto) 10.9 Eos % (Auto) 1.1 L Baso % (Auto) 0.3 Neut # (Auto) 8200 H Lymph # (Auto) 2700 [place] # (Auto) 1400 H Eos # (Auto) 100 Baso # (Auto) 0 PT INR Sodium 139 Potassium 4.4 Chloride 100 Carbon Dioxide 35 H BUN 18 Creatinine 1.12 Estimated GFR > 60.0 BUN/Creatinine Ratio 16.1 Glucose 91 Calcium 9.4 Magnesium 1.9 Total Bilirubin AST ALT Alkaline Phosphatase Total Creatine Kinase CK-MB (CK-2) CK-MB (CK-2) Rel Index Troponin I Total Protein Albumin Globulin Albumin/Globulin Ratio Lipase Nasal Screen MRSA (PCR) Negative for mrsa Ethyl Alcohol SARS-CoV-2 (PCR) Blood Type Antibody Screen Assessment & Plan Assessment and plan (1) Pneumothorax: Qualifiers: Encounter type: initial encounter Pneumothorax type: traumatic Qualified Code(s): S27.0XXA - Traumatic pneumothorax, initial encounter Status: Acute (2) Contusion of left lung: Qualifiers: Encounter type: initial encounter Qualified Code(s): S27.321A - Contusion of lung, unilateral, initial encounter Status: Acute (3) Closed rib fracture: Qualifiers: Encounter type: initial encounter Laterality: left Rib fracture type: single rib Qualified Code(s): S22.32XA - Fracture of one rib, left side, initial encounter for closed fracture Status: Acute (4) AC separation: Status: Acute (5) Hip pain: Status: Acute Assessment & Plan narrative: 28 minutes were spent reviewing imaging, and discussing imaging studies with the ER doctor, and the orthopedic surgeon on- call. 33 minutes were spent in the patient's room discussing his case with him and examining him. This is a 25-year-old man who has a small left pneumothorax, small left pulmonary contusion, a nondisplaced left rib fracture, a left AC separation, and significant left hip pain. So far he has not been able to manage without IV pain medication. We are working on pulmonary toilet, and having physical therapy work with him in order to manage with a sling, and to manage ambulation. He is in the ICU for now to observe his pulmonary status. So far he has been doing quite well, and his chest x-ray appears to be stable between last night and this morning, although per radiology the pneumothorax did progress between the chest CT in the chest x-ray. Given his pain with mobility, his need for sling draining, and that his pain is not managed without IV pain medicine at this point, he will likely be with us until tomorrow. His CK is slightly elevated, ALT is slightly elevated, and white count is slightly elevated. These are all likely just due to mechanical trauma and some soft tissue injury. Will keep some IV fluids going and recheck CK. Plan: Left arm sling P.o. and IV pain meds as needed IV fluids to clear creatinine kinase elevation General diet PT to assist with management of left arm sling and immobilization Pulmonary toilet ICU for pulmonary monitoring and management COVID-19 COVID-19 status: Negative Result date/Date tested (Pos, Neg/Pending): 12/10/20 Time Spent With Patient Time with patient: Greater than 35 minutes (61) Quality VTE Deep Vein Thrombosis/Pulmonary Embolism Present on Admission: No
--- NOTE | 2020-12-11 11:19 | PC.NURSE ---
Patient alert,oriented rates pain to left chest and left shoulder 7/10, given 10mg oxycodone and scheduled tylenol. Patient using I.S to 1500.Denies nausea.
--- NOTE | 2020-12-11 11:23 | CM.DPNOTE ---
DCP ASSESSMENT: Patient is a pleasant 25 year-old male who was admitted to the hospital after he fell down 15-20 stairs, his current diagnosis is rib fracture, Pneumothorax and a pulmonary contusion of his lung. Primary payer is [employer]. 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 DIRECTOR REGULATORY AGENCY Student and DIRECTOR REGULATORY AGENCY met with patient in room provided information and education on role of social work as it relates to discharge planning. Patient reported being in moderate pain that is limiting his ability to ambulate. Assisted in coordination with Physical Therapy to time therapy after he has medication, message left for [employer]. Will provide information for [employer] loan closet in case patient needs to borrow any DME upon discharge. Patient would like to discharge to home. He is able to take time off from work to recover and has supportive friends/roommates (Quinton [phone] and Rudolph [phone]) to help and provide transportation. He does have an entry to his house that does not require him to use the stairs. PLAN: Anticipate D/C to home. CM Team to closely follow patient and provide information to loan closet as needed. Rachel [employer] Student Discharge Planning/Care Management CM Discharge Assessment Start: 12/11/20 11:20 Freq: Status: Active Protocol: Document 12/11/20 11:20 AL (Rec: 12/11/20 11:23 AL [id number]) Discharge Planning Assessment Assigned Template Storage Clerk IAN Hood Student Contact Information Freind/roommate: Quinton and Rudolph Advance Directives? No History Provided By Patient,Medical Record Has Patient been admitted in last 30 No days? Prior Living Arrangements House Household Members friend(s) Type of transporation used prior to Drives own vehicle admit Independent with ADL's Yes Is patient alert and oriented? Yes Caregiver for Another No Barriers to Discharge No Discharge Plan Home Transportation Arrangement Patient reports Quinton or Rudolph will provide transportation at time of Discharge Additional Comment Will provide loan closet information Whiteboard Updated in Patient Room with Yes name and ext. # of Template Storage Clerk Review Status In Process
--- NOTE | 2020-12-11 14:37 | PT.IIE ---
Current Diagnoses Pain in unspecified hip (12/10/20) Fracture of one rib, left side, initial encounter for closed fracture (12/10/20) Traumatic pneumothorax, initial encounter (12/10/20) Contusion of lung, unilateral, initial encounter (12/10/20) Unspecified dislocation of unspecified acromioclavicular joint, initial encounter (12/10/20) Physical Therapy Inpatient Evaluation/Re-Eval M1 PT/OT-IP Prior Functional Status Start: 12/11/20 10:01 Freq: NEEDED Status: Active Protocol: Document 12/11/20 14:37 AW (Rec: 12/11/20 15:01 AW [id number]) Medical Review Prior Functional Status Medical History Reviewed Yes Communication WNL. Pt is an effective verbal communicator. Mobility and Gait Independent Activities of Daily Living and IADL's Independent Social History Household Members friend(s) Living Arrangements House Number of Floors (Floors) Two Floors Number of Stairs To Enter/Railing? Pt is able to enter his living area without having to access stairs. Home Environment Standard Height Toilet,Walk in Shower Employment Status Active Duty Additional Social History Comment Pt lives with two roommates in [place]. 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 M2 PT-IP Current Condition Start: 12/11/20 10:01 Freq: NEEDED Status: Active Protocol: Document 12/11/20 14:37 AW (Rec: 12/11/20 15:01 AW [id number]) Physical Therapy Current Condition Current Condition Evaluation Date 12/11/20 Treatment Diagnosis L pneumothorax, L 6th rib fracture, L hip pain s/p fall down stairs Onset Date 12/10/20 M3 PT-IP Subjective Start: 12/11/20 10:01 Freq: NEEDED Status: Active Protocol: Document 12/11/20 14:37 AW (Rec: 12/11/20 15:01 AW [id number]) Subjective Physical Therapy Visit Type Type Initial Evaluation Visit Start Time 13:20 Visit Stop Time 13:47 Total Visit Minutes 27 Physical Therapy Visit Comments Patient Comments Pt is willing to participate with PT Patient Goals Return to work on [employer] [facility] aircraft Therapy Pain Assessment Pain When Pain Assessed During Mobility Pain Present Pain Present Pain Reported Location left hip Intensity 8 Scale Used Numeric (0 - 10) left chest Intensity 8 Scale Used Numeric (0 - 10) M4 PT-IP Mobility and Gait Start: 12/11/20 10:01 Freq: NEEDED Status: Active Protocol: Document 12/11/20 14:37 AW (Rec: 12/11/20 15:01 AW [id number]) PT-Bed Mobility Assessment Rolling Type of Rolling Log Rolling,Roll to Right Level of Assist Contact Guard Assistance Supine to Sit Supine to Sit Minimal Assistance Sit to Supine Sit to Supine Contact Guard Assistance Scooting Scooting to Edge of Bed Standby Assistance Scooting Up and Down in Bed Standby Assistance PT-Transfer Assessment Sit to and From Stand Sit to and from Stand Minimal Assistance,1 Person Assistance,Use of Upper Extremities Equipment Transfer Assistive Device None,Gait Belt,Straight Cane Orthotic/Prosthetic Devices or Brace: No Transfers Transfer Destination Bed Transfer Technique Stand Step Pivot Transfer Ability Level of Assist Contact Guard Assistance Comments Mobility Comments Pt was reclined in the bed as PT arrived. Instructed pt in log roll for bed mobility. Pt rolled to his right side CGA and needed min A x 1 for SL to sit transition. He complained of increased pain. PT fit the pt with XL shoulder sling per physician order and educated pt on purpose of sling and donning/doffing. Pt stood from the bed requiring min A x 1 due to unsteadiness. He reached for the IV pole, leaning forward and to the right side as he stood. He walked with IV pole support to the mirror for visual feedback on shoulder sling maintenance. Pt then ambulated in the halls 75 feet with IV pole support and 50 feet without. Pt needed CGA for ambulation without device. On return to the room, pt agreed to trial ambulation with SPC. He ambulated 60 feet with SPC SBA to CGA. He was able to appropriately sequence gait with cane held in RUE. On return to the room, pt requested return to bed as sitting tolerance was low. He returned to supine via reverse log roll. Bed alarm was activated for safety. Gait Assessment Gait Gait Assistance Required: Standby Assistance,Contact Guard Assist Distance (Feet) 125 Assistive Devices Assistive Device None,Gait Belt,Straight Cane Orthotic/Prosthetic Devices or Brace: No Gait Deviations General Gait Pattern Antalgic,Decreased Stride Length,Decreased Feet Clearance,Flexed Trunk,Lateral Trunk Lean,Step-to Gait Factors Limiting Gait Function Factors Limiting Gait Function Decreased Strength,Limited Range of Motion,Pain,Poor Balance,Poor Safety Awareness Comments Gait Comments See mobility comments for details. Stair Climbing Assessment Comments Stair Climbing Comments Not assessed. Pt states he can access his living area without need to use the stairs . PT-Balance Assessment Sitting Balance and Reactions Static Sitting Balance Ability Fair Dynamic Sitting Balance Ability Fair Standing Balance and Reactions Static Standing Balance Ability Fair Dynamic Standing Balance Ability Fair Device Used SPC M5 PT-IP Objective Assessments Start: 12/11/20 10:01 Freq: NEEDED Status: Active Protocol: Document 12/11/20 14:37 AW (Rec: 12/11/20 15:01 AW [id number]) Orientation Orientation/Cognition Level of Alertness Alert Orientation Name,Date,Day of Week,Place, Situation Language Function Ability No Deficits Noted Safety Awareness Decreased Safety Awareness Memory Description No Deficits Noted Gross Range of Motion Upper Extremity ROM Assessment Left Impaired Impairments L A/C separation and rib fracture Lower Extremity ROM Assessment Within Functional Limits Strength Upper Extremity Strength Assessment Left Impaired Lower Extremity Strength Assessment Left Impaired Sensation Assessment Sensation Gross Sensation WNL M6 PT-IP Treatment Start: 12/11/20 10:01 Freq: NEEDED Status: Active Protocol: Document 12/11/20 14:37 AW (Rec: 12/11/20 15:01 AW [id number]) Physical Therapy Treatment Exercises Exercises Elbow Flexion/Extension,Wrist ROM,Hand ROM Education Education Provided Safety Brace Education [place],Patient Equipment Issued Equipment Type and Company Soft shoulder sling dispensed from [employer] M7 PT-IP Assessment and Plan Start: 12/11/20 10:01 Freq: NEEDED Status: Active Protocol: Document 12/11/20 14:37 AW (Rec: 12/11/20 15:01 AW [id number]) PT Summary Assessment and Plan Potential Rehabilitation Potential Good Status of Condition at Evaluation Evolving Summary Impairments Pain,ROM,Strength,Balance,Bed Mobility,Transfers,Gait, Activity Tolerance Assessment Summary Tony is 25 yo and active duty [employer] at [employer]. He is independent in all regards at baseline. 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 Following a fall down 15 or more stairs, he suffered left lung contusion, pneumothorax, 6th rib fracture, AC joint separation, and hip pain which are affecting his mobility. Pt was fit with a shoulder sling per physician order. He required CGA to min assist for most mobilities including gait with single point cane. Pt will benefit from continued acute PT to progress his safe mobility and will require outpatient physical therapy to promote return to prior level of function. Pt will be safe to discharge home with assist and outpatient PT once medically cleared. Goals Bed Mobility Goal Independent Transfer Goal Independent,Cane Gait Goal Independent,Cane Gait Distance 200 Days to Meet Goals 3 Frequency of Treatment Frequency Of Treatment Once a Day Treatment Plan Physical Therapy Treatment Plan Bed Mobility Training,Transfer Training,Gait Training, Therapeutic Exercise,Balance Retraining,Discharge Planning, Hot or Cold Pack Other Recommendations and Next Treatment progress gait training with Focus SPC; review fitting of sling for optimal support and comfort Recommendations To Nursing Amount of Assist Needed 1 Person Assist Discharge Recommendations PT Discharge Recommendations Home with Assistance, Outpatient PT Equipment Needed for Home Before SPC Discharge Transportation Needs at Discharge Private Vehicle
[2020-12-11] MEDS: SENNOSIDES 8.6 MG TABLET 17.2 MG PO (21:01)
[2020-12-12] VITALS (11 sets, daily range): BP systolic 126–141; BP diastolic 57–67; PULSE 42–68; RESP 14–18; TEMP 36.3–37.4; O2SAT 94–100
[2020-12-12] MEDS: IBUPROFEN 600 MG TABLET PO ×4 (03:00→18:08)
[2020-12-12] MEDS: OXYCODONE IR 10 MG TABLET PO ×3 (03:00→12:08)
[2020-12-12 04:49] LABS: Add Manual Diff / Slide Review NO; Basophils Absolute Auto 0 /uL (0-100); Basophils Percent Auto 0.5 % (0-2); Eosinophils Absolute Auto 200 /uL (0-450); Hematocrit 37.2 % (41-53); Hemoglobin 12.5 g/dL (13.5-17.5); Lymphocytes Absolute Auto 2000 /uL (1100-4500); Lymphocytes Percent Auto 30.4 % (25-40); Mean Corpuscular HGB Conc 33.6 % (30-36); Mean Corpuscular Hemoglobin 30.9 PG (26-34); Mean Corpuscular Volume 92.1 fL (80-100); Monocytes Absolute Auto 700 /uL (0-900); Monocytes Percent Auto 11.2 % (3-14); Neutrophils Absolute Auto 3600 /uL (1500-7000); Neutrophils Percent Auto 54.9 % (50-75); Platelet Count 214 X10^3/uL (150-400); Red Blood Cell Count 4.04 X10^6/uL (4.5-5.9); Red Cell Distribution Width 13.2 % (11.6-14.8); White Blood Cell Count 6.5 X10^3/uL (4.5-11.0)
[2020-12-12 04:51] LABS: Creatine Kinase 803 U/L (55-170)
[2020-12-12 05:16] LABS: BUN Creatinine Ratio 14.4 (6-22); Blood Urea Nitrogen 13 mg/dL (9-20); Calcium 8.3 mg/dL (8.4-10.2); Carbon Dioxide 30 mmol/L (22-32); Chloride 106 mmol/L (98-107); Estimated Glomerular Filt Rate > 60.0 mL/min (>60); Glucose 87 mg/dL (70-100); HEMOLYSIS < 15 (0-50); Magnesium 1.9 mg/dL (1.6-2.3); Potassium 4.2 mmol/L (3.4-5.1); Sodium 135 mmol/L (137-145)
--- NOTE | 2020-12-12 07:00 | DI.RAD.S_ITS ---
PROCEDURE: XR CHEST 1V INDICATIONS: interval change in pneumothorax TECHNIQUE: One view of the chest was acquired. COMPARISON: [facility], CR, XR CHEST 1V, 12/10/2020, 22:57. [facility], CR, XR CHEST 2V, 12/11/2020, 8:35. FINDINGS: Surgical changes and devices: None. Lungs and pleura: There is a minimal left apical pneumothorax which appears similar to the prior study. No right pneumothorax. There are a few linear opacities in the left lung base likely representing atelectasis. No pleural effusions. Mediastinum: Mediastinal contours appear unchanged. Heart size is normal. Bones and chest wall: No suspicious bony lesions. Overlying soft tissues appear unremarkable. IMPRESSION: 2. Minimal left pneumothorax appears similar in size to the prior study. Dictated by: Rudolph Matt M.D. on 12/12/2020 at 8:59 Approved by: Rudolph Matt M.D. on 12/12/2020 at 9:01
[2020-12-12] MEDS: ACETAMINOPHEN 325 MG TABLET 650 MG PO ×3 (07:37→18:09)
[2020-12-12] MEDS: buPROPion XL 150 MG TAB PO (07:38)
[2020-12-12] MEDS: polyethylene glycoL 3350 17 GM POWD.PACK PO (07:39)
[2020-12-12] MEDS: DOCUSATE 100 MG CAPSULE PO ×2 (07:39→21:20)
[2020-12-12] MEDS: SODIUM CHLORIDE 0.9% FLUSH 10 ML IV (08:49)
[2020-12-12] MEDS: HYDROMORPHONE 0.5 MG INJ IV ×2 (08:50→15:58)
--- NOTE | 2020-12-12 11:52 | PT.IPTN ---
Current Diagnoses Pain in unspecified hip (12/10/20) Fracture of one rib, left side, initial encounter for closed fracture (12/10/20) Traumatic pneumothorax, initial encounter (12/10/20) Contusion of lung, unilateral, initial encounter (12/10/20) Unspecified dislocation of unspecified acromioclavicular joint, initial encounter (12/10/20) Physical Therapy Treatment Note M2 PT-IP Current Condition Start: 12/11/20 10:01 Freq: NEEDED Status: Active Protocol: Document 12/11/20 14:37 AW (Rec: 12/11/20 15:01 AW [id number]) Physical Therapy Current Condition Current Condition Evaluation Date 12/11/20 Treatment Diagnosis L pneumothorax, L 6th rib fracture, L hip pain s/p fall down stairs Onset Date 12/10/20 M3 PT-IP Subjective Start: 12/11/20 10:01 Freq: NEEDED Status: Active Protocol: Document 12/12/20 11:52 AW (Rec: 12/12/20 12:13 AW [id number]) Subjective Physical Therapy Visit Type Type Treatment Note Visit Start Time 11:14 Visit Stop Time 11:29 Total Visit Minutes 15 Notes Pt's roommate present throughout treatment. Physical Therapy Visit Comments Patient Comments I took a shower and my mood is so much better. Therapy Pain Assessment Pain When Pain Assessed During Mobility Pain Present Pain Present Pain Reported Location left rib/chest/shoulder Intensity 6 Scale Used Numeric (0 - 10) M4 PT-IP Mobility and Gait Start: 12/11/20 10:01 Freq: NEEDED Status: Active Protocol: Document 12/12/20 11:52 AW (Rec: 12/12/20 12:13 AW [id number]) PT-Transfer Assessment Sit to and From Stand Sit to and from Stand Standby Assistance,Use of Upper Extremities Equipment Transfer Assistive Device Gait Belt,Straight Cane Orthotic/Prosthetic Devices or Brace: Yes Transfers Transfer Destination Chair Transfer Technique Stand Step Pivot Transfer Ability Level of Assist Standby Assistance,Use of Upper Extremities Comments Mobility Comments Pt was dressed and sitting up in chair as PT arrived. Sit to stand was SBA with SPC for stability. He stood at the sink for further education on fitting for his shoulder sling . He then ambulated in the halls a total of 150 feet with SPC SBA and occasional verbal cues for sequencing. PT faded verbal cues and pt was able to maintain safe gait. On return to the room, he transferred to the chair SBA and was left with call light and all needs in reach, fresh ice pack provided. Gait Assessment Gait Gait Assistance Required: Standby Assistance Distance (Feet) 150 Assistive Devices Assistive Device Gait Belt,Straight Cane Orthotic/Prosthetic Devices or Brace: Yes Gait Deviations General Gait Pattern Antalgic,Decreased Stride Length,Decreased Feet Clearance,Flexed Trunk,Lateral Trunk Lean,Step-to Gait Factors Limiting Gait Function Factors Limiting Gait Function Decreased Strength,Limited Range of Motion,Pain,Poor Balance,Poor Safety Awareness Comments Gait Comments See mobility comments for details. Stair Climbing Assessment Evaluation Level of Assist On Stairs Standby Assistance Devices Stair Climbing Assistive Devices Straight Cane Technique/Endurance Stair Climbing Direction Ascend and Descend Stair Climbing Technique Step to Step Number of Steps Climbed 2 Stair Climbing Set # Repetitions (reps) 1 Comments Stair Climbing Comments Pt clarified that he must ascend two stairs without railing to access his living space. On ICU stairwell, pt was able to ascend/descend two stairs with SPC held in right hand SBA. PT-Balance Assessment Sitting Balance and Reactions Static Sitting Balance Ability Good Dynamic Sitting Balance Ability Good Standing Balance and Reactions Static Standing Balance Ability Good Dynamic Standing Balance Ability Good Device Used SPC M5 PT-IP Objective Assessments Start: 12/11/20 10:01 Freq: NEEDED Status: Active Protocol: Document 12/11/20 14:37 AW (Rec: 12/11/20 15:01 AW [id number]) Orientation Orientation/Cognition Level of Alertness Alert Orientation Name,Date,Day of Week,Place, Situation Language Function Ability No Deficits Noted Safety Awareness Decreased Safety Awareness Memory Description No Deficits Noted Gross Range of Motion Upper Extremity ROM Assessment Left Impaired Impairments L A/C separation and rib fracture Lower Extremity ROM Assessment Within Functional Limits Strength Upper Extremity Strength Assessment Left Impaired Lower Extremity Strength Assessment Left Impaired Sensation Assessment Sensation Gross Sensation WNL M6 PT-IP Treatment Start: 12/11/20 10:01 Freq: NEEDED Status: Active Protocol: Document 12/12/20 11:52 AW (Rec: 12/12/20 12:13 AW [id number]) Physical Therapy Treatment Exercises Exercises Elbow Flexion/Extension,Wrist ROM,Hand ROM Education Education Provided Safety Brace Education Antonio Anthony,Patient M7 PT-IP Assessment and Plan Start: 12/11/20 10:01 Freq: NEEDED Status: Active Protocol: Document 12/12/20 11:52 AW (Rec: 12/12/20 12:13 AW [id number]) PT Summary Assessment and Plan Summary Impairments Pain,ROM,Strength,Balance,Bed Mobility,Transfers,Gait, Activity Tolerance Progress Towards Goals Progressing Toward Goals Assessment Summary Pt continues to require SBA for mobility with SPC. He understands how to fit his shoulder sling and states he will purchase a cane on the way home. His roommates all work differing shifts and there will nearly always be someone at home to provide assist as needed. Pt will be safe to discharge home with assist and outpatient PT once medically cleared. Goals Bed Mobility Goal Independent Transfer Goal Independent,Cane Gait Goal Independent,Cane Gait Distance 200 Days to Meet Goals 2 Frequency of Treatment Frequency Of Treatment Once a Day Treatment Plan Physical Therapy Treatment Plan Bed Mobility Training,Transfer Training,Gait Training, Therapeutic Exercise,Balance Retraining,Discharge Planning, Hot or Cold Pack Other Recommendations and Next Treatment progress gait training with Focus SPC; review fitting of sling for optimal support and comfort Recommendations To Nursing Amount of Assist Needed Standby Assistance Discharge Recommendations PT Discharge Recommendations Home with Assistance, Outpatient PT Equipment Needed for Home Before SPC Discharge Transportation Needs at Discharge Private Vehicle
[2020-12-12] MEDS: CYCLOBENZAPRINE 10 MG TABLET PO ×2 (12:07→21:20)
--- NOTE | 2020-12-12 12:53 | PM.PN.1 ---
Subjective Subjective Date Patient Seen: 12/12/20 Time Patient Seen: 12:54 Interval history: Continued left chest and shoulder pain requiring IV pain medication. Breathing comfortably, ambulating to bathroom Exam Vital Signs (past 8 hours): - 12/12/20 05:02 12/12/20 08:00 12/12/20 12:00 Temperature 97.8 F 97.7 F 98.3 F Pulse Rate 66 42 L 54 L Respiratory Rate 16 18 18 Blood Pressure 126/61 130/67 130/67 Pulse Oximetry 96 100 100 Oxygen Delivery Method Room Air Oxygen Flow Rate 0 Narrative Exam Narrative: Gen-Young adult male no acute distress Left shoulder-sling, neuro muscular intact distally Abdomen-Soft non tender Objective Labs Result Diagrams: 12/12/20 04:25 12/12/20 04:25 Labs: Laboratory Results - last 24 hr 12/12/20 12/12/20 12/12/20 04:25 04:25 04:25 WBC 6.5 RBC 4.04 L Hgb 12.5 L Hct 37.2 L MCV 92.1 MCH 30.9 MCHC 33.6 RDW 13.2 Plt Count 214 Neut % (Auto) 54.9 Lymph % (Auto) 30.4 [place] % (Auto) 11.2 Eos % (Auto) 3.0 Baso % (Auto) 0.5 Neut # (Auto) 3600 Lymph # (Auto) 2000 [place] # (Auto) 700 Eos # (Auto) 200 Baso # (Auto) 0 Sodium 135 L Potassium 4.2 Chloride 106 Carbon Dioxide 30 BUN 13 Creatinine 0.90 Estimated GFR > 60.0 BUN/Creatinine Ratio 14.4 Glucose 87 Calcium 8.3 L Magnesium 1.9 Total Creatine Kinase 803 H D [facility] Social History household members: friend(s) Smoking Status: Never smoker alcohol intake: former Assessment & Plan Assessment & Plan narrative: 25M sp trauma admit after falling down stairs. #L pneumothorax-Small remains unchanged from admission imaging. Continue IS, repeat CXR tomorrow #Left AC separation-Sling for comfort. PT #L rib fracture-multi modal pain control. Oxycodone, Tylenol, Flexeril, and Ibuprofen. Still requiring IV pain meds wean as able. Will increase PO oxyocodone to 15 mg from 10 mg. -SCDs and pLovneox for VTE prophylaxis -Anticipate DC home tomorrow if weaned from IV pain meds Quality VTE Deep Vein Thrombosis/Pulmonary Embolism Present on Admission: No
[2020-12-12] MEDS: diphenhydrAMINE 25 MG TABLET PO (13:42)
[2020-12-12] MEDS: ENOXAPARIN 40 MG/0.4 ML SYRINGE SUBCUT (14:54)
[2020-12-12] MEDS: OXYCODONE IR 10 MG TABLET 15 MG PO ×2 (14:55→18:08)
--- NOTE | 2020-12-12 19:09 | PC.NURSE ---
Pt set pain goal for less than 5. Discussed pain med regimen and non pharm pain mgmt techniques with pt. Despite administration of current PO pain rx, ice, positioning and splinting- pt continues to rate pain 7/10 with only modest improvements after IV dilaudid to 5/10. Spoke with Dr. Vogel and received orders for flexeril and increased dose of oxycodone. Despite the addition of these medications, pt still required IV dilaudid for break through pain at 1600 which only relieved his pain briefly to 5/10 before requiring add'l rx at 1800. Pt has had stable VS and SPO2 98-100% on RA. Using IS independently and pulling [id number] ML. Up ambulating in room independently with steady gait. Using cane intermittently. Plan is to achieve better pain control with PO rx and dc probably tomorrow.
[2020-12-12] MEDS: OXYCODONE IR 5 MG TABLET PO (21:20)
[2020-12-12] MEDS: SENNOSIDES 8.6 MG TABLET 17.2 MG PO (21:20)
[2020-12-13] MEDS: IBUPROFEN 600 MG TABLET PO ×3 (00:01→11:24)
[2020-12-13] MEDS: OXYCODONE IR 10 MG TABLET 15 MG PO ×4 (00:01→11:25)
[2020-12-13 04:43] VITALS: BP 141/59; PULSE 55; RESP 18; TEMP 37.2; O2SAT 98
[2020-12-13 05:03] LABS: Add Manual Diff / Slide Review NO; Basophils Absolute Auto 100 /uL (0-100); Basophils Percent Auto 0.8 % (0-2); Eosinophils Absolute Auto 300 /uL (0-450); Eosinophils Percent Auto 4.1 % (2-4); Hemoglobin 13.4 g/dL (13.5-17.5); Lymphocytes Absolute Auto 2100 /uL (1100-4500); Lymphocytes Percent Auto 29.2 % (25-40); Mean Corpuscular HGB Conc 33.5 % (30-36); Mean Corpuscular Hemoglobin 30.9 PG (26-34); Mean Corpuscular Volume 92.3 fL (80-100); Monocytes Absolute Auto 900 /uL (0-900); Neutrophils Absolute Auto 3900 /uL (1500-7000); Neutrophils Percent Auto 53.9 % (50-75); Platelet Count 248 X10^3/uL (150-400); Red Blood Cell Count 4.33 X10^6/uL (4.5-5.9); Red Cell Distribution Width 13.4 % (11.6-14.8); White Blood Cell Count 7.2 X10^3/uL (4.5-11.0)
[2020-12-13 05:05] LABS: BUN Creatinine Ratio 14.4 (6-22); Blood Urea Nitrogen 16 mg/dL (9-20); Calcium 8.5 mg/dL (8.4-10.2); Carbon Dioxide 35 mmol/L (22-32); Chloride 102 mmol/L (98-107); Estimated Glomerular Filt Rate > 60.0 mL/min (>60); Glucose 95 mg/dL (70-100); HEMOLYSIS 17 (0-50); Potassium 4.7 mmol/L (3.4-5.1); Sodium 137 mmol/L (137-145)
[2020-12-13] MEDS: ACETAMINOPHEN 325 MG TABLET 650 MG PO ×3 (05:40→11:25)
--- NOTE | 2020-12-13 06:00 | DI.RAD.S_ITS ---
PROCEDURE: XR CHEST 1V INDICATIONS: Left pneumothorax TECHNIQUE: One view of the chest was acquired. COMPARISON: [facility], CR, XR CHEST 1V, 12/12/2020, 7:17. FINDINGS: Surgical changes and devices: None. Lungs and pleura: Lungs are clear. Trace apical left-sided pneumothorax unchanged compared to December 12, 2020. Mediastinum: Mediastinal contours appear normal. Heart size is normal. Bones and chest wall: No suspicious bony lesions. Overlying soft tissues appear unremarkable. IMPRESSION: Trace apical left-sided pneumothorax unchanged compared to December 12, 2020. Dictated by: Tessie Castellanos MD, PhD on 12/13/2020 at 8:49 Approved by: Tessie Castellanos MD, PhD on 12/13/2020 at 8:51
--- NOTE | 2020-12-13 06:33 | PC.NURSE ---
Shift Note-Patient rates pain to left shoulder and torso 5-05/20, medicated with PO pain medications as ordered; scheduled Tylenol and ibuprofen, oxycodone and Flexaril per prn, declined use of sling overnight. SpO2 >94% on RA. Independent to BR. Has had few normal BMs.
[2020-12-13 08:00] VITALS: BP 157/74; PULSE 60; RESP 18; TEMP 37; O2SAT 100
[2020-12-13] MEDS: CYCLOBENZAPRINE 10 MG TABLET PO (08:29)
[2020-12-13] MEDS: buPROPion XL 150 MG TAB PO (08:29)
[2020-12-13] MEDS: SODIUM CHLORIDE 0.9% FLUSH 10 ML IV ×2 (08:30)
[2020-12-13 08:33] VITALS: O2SAT 96
--- NOTE | 2020-12-13 09:50 | PT.IPTN ---
Current Diagnoses Pain in unspecified hip (12/10/20) Fracture of one rib, left side, initial encounter for closed fracture (12/10/20) Traumatic pneumothorax, initial encounter (12/10/20) Contusion of lung, unilateral, initial encounter (12/10/20) Unspecified dislocation of unspecified acromioclavicular joint, initial encounter (12/10/20) Physical Therapy Treatment Note M2 PT-IP Current Condition Start: 12/11/20 10:01 Freq: NEEDED Status: Active Protocol: Document 12/11/20 14:37 AW (Rec: 12/11/20 15:01 AW [id number]) Physical Therapy Current Condition Current Condition Evaluation Date 12/11/20 Treatment Diagnosis L pneumothorax, L 6th rib fracture, L hip pain s/p fall down stairs Onset Date 12/10/20 M3 PT-IP Subjective Start: 12/11/20 10:01 Freq: NEEDED Status: Active Protocol: Document 12/13/20 09:50 AW (Rec: 12/13/20 10:07 AW [id number]) Subjective Physical Therapy Visit Type Type Treatment Note Visit Start Time 09:32 Visit Stop Time 09:50 Total Visit Minutes 18 Physical Therapy Visit Comments Patient Comments I think I'll be alright at home Therapy Pain Assessment Pain When Pain Assessed During Mobility Pain Present Pain Present Pain Reported Location left rib/chest/shoulder Intensity 6 Scale Used Numeric (0 - 10) M4 PT-IP Mobility and Gait Start: 12/11/20 10:01 Freq: NEEDED Status: Active Protocol: Document 12/13/20 09:50 AW (Rec: 12/13/20 10:07 AW [id number]) PT-Transfer Assessment Sit to and From Stand Sit to and from Stand Standby Assistance,Use of Upper Extremities Equipment Transfer Assistive Device Gait Belt,Straight Cane Orthotic/Prosthetic Devices or Brace: Yes Transfers Transfer Destination Chair Transfer Technique Stand Step Pivot Transfer Ability Level of Assist Standby Assistance,Use of Upper Extremities Comments Mobility Comments Pt was emerging from the washroom using SPC as PT arrived. He stood with left arm hanging to gravity as Dr. Kaplan counseled him on discharge recommendations and requested to be re-fit with sling as soon as Dr. Kaplan left. Pt walked to the sink for continued education on donning and doffing. He then put on his face mask using his right hand only and ambulated the halls 150 feet with SPC SBA but requiring CGA for one LOB to the right side. Pt returned to the room and transferred to the chair SBA. He was left with call light and all needs in reach. Gait Assessment Gait Gait Assistance Required: Standby Assistance Distance (Feet) 150 Assistive Devices Assistive Device Gait Belt,Straight Cane Orthotic/Prosthetic Devices or Brace: Yes Gait Deviations General Gait Pattern Antalgic,Decreased Stride Length,Decreased Feet Clearance,Flexed Trunk,Lateral Trunk Lean,Step-to Gait Factors Limiting Gait Function Factors Limiting Gait Function Decreased Strength,Limited Range of Motion,Pain,Poor Balance,Poor Safety Awareness Comments Gait Comments See mobility comments for details. PT-Balance Assessment Sitting Balance and Reactions Static Sitting Balance Ability Good Dynamic Sitting Balance Ability Good Standing Balance and Reactions Static Standing Balance Ability Good Dynamic Standing Balance Ability Fair Device Used SPC M5 PT-IP Objective Assessments Start: 12/11/20 10:01 Freq: NEEDED Status: Active Protocol: Document 12/11/20 14:37 AW (Rec: 12/11/20 15:01 AW [id number]) Orientation Orientation/Cognition Level of Alertness Alert Orientation Name,Date,Day of Week,Place, Situation Language Function Ability No Deficits Noted Safety Awareness Decreased Safety Awareness Memory Description No Deficits Noted Gross Range of Motion Upper Extremity ROM Assessment Left Impaired Impairments L A/C separation and rib fracture Lower Extremity ROM Assessment Within Functional Limits Strength Upper Extremity Strength Assessment Left Impaired Lower Extremity Strength Assessment Left Impaired Sensation Assessment Sensation Gross Sensation WNL M6 PT-IP Treatment Start: 12/11/20 10:01 Freq: NEEDED Status: Active Protocol: Document 12/13/20 09:50 AW (Rec: 12/13/20 10:07 AW [id number]) Physical Therapy Treatment Education Education Provided Safety Brace Education [place],Patient Other Treatments Other Treatment Performed Educated pt on diaphragmatic breathing and physiological quieting techniques for non- pharm pain management. Pt agreeable and states he has done yoga before and understands concepts. M7 PT-IP Assessment and Plan Start: 12/11/20 10:01 Freq: NEEDED Status: Active Protocol: Document 12/13/20 09:50 AW (Rec: 12/13/20 10:07 AW [id number]) PT Summary Assessment and Plan Summary Impairments Pain,ROM,Strength,Balance,Bed Mobility,Transfers,Gait, Activity Tolerance Progress Towards Goals Progressing Toward Goals Assessment Summary Pt had one LOB with SPC today but required fewer cues for sequencing gait pattern. Educated pt on non-pharm pain management techniques for physiological quieting and pt was receptive. Pt will acquire a SPC on the way home today and was advised to consider a resist coater developer as well to assist with dressing and other tasks. Pt is safe to discharge home with assist and outpatient PT. Goals Bed Mobility Goal Independent Transfer Goal Independent,Cane Gait Goal Independent,Cane Gait Distance 200 Days to Meet Goals 2 Frequency of Treatment Frequency Of Treatment Once a Day Treatment Plan Physical Therapy Treatment Plan Bed Mobility Training,Transfer Training,Gait Training, Therapeutic Exercise,Balance Retraining,Discharge Planning, Hot or Cold Pack Recommendations To Nursing Amount of Assist Needed Independent Discharge Recommendations PT Discharge Recommendations Home with Assistance, Outpatient PT Equipment Needed for Home Before SPC, resist coater developer Discharge Transportation Needs at Discharge Private Vehicle
[2020-12-13 12:00] VITALS: BP 156/66; PULSE 65; RESP 19; TEMP 37; O2SAT 99
--- NOTE | 2020-12-13 12:45 | P.DS_ITS ---
History of Present Illness History of Present Illness Chief complaint: fall down 15 to 20 stairs, ribs hurt Narrative: This is a 25 year old man without significant medical history, who came into the ER during the night after falling down a flight of concrete stairs. He denies LOC/dizziness prior to his fall. He says he was just not paying close attention and was looking at his phone. He lost his footing and fell down 15-20 stairs, hitting his forehead, left shoulder, chest wall, and left hip on the way down. He denies any loss of consciousness and has full recall. His friend was present and witnessed the events. He denies any alcohol or street drugs. He denies the use of blood thinners. In the ER he was CT'ed from head to groin, with a left sixth rib non-displaced fracture, tiny apical left pneumothoroax, and left pulmonary contusion found. His pain was not well controlled in the ER, and he was admitted for pulmonary toilet, monitoring of the pulmonary contusion and pneumothorax, and pain control. This morning his left upper back, left hip, and left shoulder are quite painful, per him, even with 1 mg of IV Dilaudid, and 10 mg of p.o. oxycodone on board. ROS: Reports ?excruciating? left hip pain, next chest wall pain, left upper back pain, and left shoulder pain. He denies headache, nausea, abdominal pain, confusion, blurry vision, double vision. He denies any new pains to arisen since admission. Thirteen system review is otherwise negative other than as mentioned below and in HPI. PE: GENERAL: Alert, comfortable. Appears stated age. Answers questions promptly and appropriately. Vital signs noted. HENT: Clean abrasion on the center of the forehead, without active bleeding, or surrounding ecchymosis. Otherwise normocephalic, atraumatic. Hearing intact. EYES: Conjunctiva pink, sclera white, no periorbital swelling. CARDIOVASCULAR: Regular rate. No pedal edema. RESPIRATORY: Non-tachypneic, breathing comfortably on room air at rest. Splinting of left chest when he coughs or moves GASTROINTESTINAL: Abdomen soft and non-distended, nontender, no masses, hernias GENITALURINARY: No right flank tenderness. Significant left flank tenderness, associated with left rib fracture Back: CT and L-spine are nontender with no step-offs and no ecchymoses; significant tenderness to palpation just below the left scapula MUSCULOSKELETAL: Equal tone and mass bilaterally. Right arm full range of motion, left arm limited range of motion at the shoulder, limited by pain. Patient is not able to raise his arm above shoulder level. No significant ecchymoses, 5/5 strength and sensation in the right upper extremity. 5/5 sensation, with strength exam limited by pain. Tenderness over soft tissue of left lateral hip and thigh, without ecchymoses; 5/5 strength and sensation in the lower extremities SKIN: Warm, dry, soft, appropriate color for ethnicity. No other lesions, rashes, or wounds. NEURO: Alert and Oriented X 3. No gross sensory deficits, or cognitive issues. PSYCH: Appropriate affect and mood. Discharge Providers Provider Date of admission: 12/10/20 22:35 Discharge Date: 12/13/20 Consults: 12/10/20 22:47 Consult to Respiratory Therapy Evaluate & Treat Comment: goal of 80% inspirority [place] or max 1500mL Physician Instructions: Baseline spriometry vol 12/11/20 08:33 Consult to Physical Therapy Evaluate & Treat Comment: left hip pain w movement, AC sep; no fracture Physician Instructions: Evaluate and Treat, mobility and sling teaching Discharge provider: Josee Kaplan MD Summary Hospital Course Discharge Diagnosis: left sixth rib fracture, left pulmonary contusion, left pneumothorax, left AC separation, left hip pain Hospital Course: Treated with pain med, pulmonary toilet, and PT Status at Discharge Cognitive/behavioral status at discharge: oriented Functional status at discharge: uses cane/walker Overall status at discharge: patient is progressing back to baseline Time Spent with Patient Time spent: Greater than 30 minutes Exam Vital Signs (past 8 hours): - 12/13/20 08:00 12/13/20 08:33 12/13/20 12:00 Temperature 98.6 F 98.6 F Pulse Rate 60 65 Respiratory Rate 18 19 Blood Pressure 157/74 H 156/66 H Pulse Oximetry 100 96 99 Oxygen Delivery Method Room Air Oxygen Flow Rate 0 Narrative Exam Narrative: GENERAL: Alert, comfortable. Appears stated age. Answers questions promptly and appropriately. Vital signs noted. HENT: Clean abrasion on the center of the forehead, without active bleeding, or surrounding ecchymosis. Otherwise normocephalic, atraumatic. Hearing intact. EYES: Conjunctiva pink, sclera white, no periorbital swelling. CARDIOVASCULAR: Regular rate. No pedal edema. RESPIRATORY: Non-tachypneic, breathing comfortably on room air at rest. Splinting of left chest when he coughs or moves GASTROINTESTINAL: Abdomen soft and non-distended, nontender, no masses, hernias GENITALURINARY: No right flank tenderness. Moderate left flank tenderness, associated with left rib fracture Back: CT and L-spine are nontender with no step-offs and no ecchymoses; significant tenderness to palpation just below the left scapula MUSCULOSKELETAL: Equal tone and mass bilaterally. Right arm full range of motion, left arm limited range of motion at the shoulder, limited by pain. Patient is not able to raise his arm above shoulder level. No significant ecchymoses, 5/5 strength and sensation in the right upper extremity. 5/5 sensation, with strength exam limited by pain. Tenderness over soft tissue of left lateral hip and thigh, without ecchymoses; 5/5 strength and sensation in the lower extremities SKIN: Warm, dry, soft, appropriate color for ethnicity. No other lesions, violet hes, or wounds. NEURO: Alert and Oriented X 3. No gross sensory deficits, or cognitive issues. PSYCH: Appropriate affect and mood. Objective Imaging CT head, neck, chest, abdomen, pelvis. CXR, shoulder 2 view XR: Radiologist's impression: CT scan - abdomen: My impression: Tiny apical pneumothorax, Fairly visible rib fracture Radiologist's impression: PROCEDURE: CT HEAD/BRAIN WO CON INDICATIONS: Trauma TECHNIQUE: Noncontrast 4.5 mm thick angled axial sections acquired from the foramen magnum to the vertex, with coronal and sagittal reformats. For radiation dose reduction, the following was used: automated exposure control, adjustment of mA and/or kV according to patient size. COMPARISON: None. FINDINGS: Image quality: Excellent. CSF spaces: Basal cisterns are patent. No extra-axial fluid collections. Ventricles are normal in size and shape. Brain: No midline shift. No intracranial masses or hemorrhage. Lindsey-white matter interface is normal. Skull and face: Calvarium and visualized facial bones are intact, without suspicious lesions. Sinuses: Visualized sinuses and mastoids are clear. IMPRESSION: No acute intracranial process. Dictated by: Bryson Mejía M.D. on 12/10/2020 at 21:53 Approved by: Bryson Mejía M.D. on 12/10/2020 at 21:55 CT - cervical spine: Radiologist's Impression: [address] [id number] Scan ReportSigned Patient: Tony Jon KMR#: [id number]: 1995Acct:[id number]/Sex: 25 / MDate of Service: 12/10/20Lo: EDAccession Number: [id number] Procedure: CT cervical spine wo con Ordering Provider: Mt William D.O. PROCEDURE: CT CERVICAL SPINE WO CON INDICATIONS: Trauma TECHNIQUE: Noncontrast 3 mm thick sections acquired from the skull base to the T4 level. Sagittal and coronal reformats were then constructed. For radiation dose reduction, the following was used: automated exposure control, adjustment of mA and/or kV according to patient size. COMPARISON: None. FINDINGS: Image quality: Excellent. Bones: No fractures or dislocations. Visualized superior ribs are intact. Soft tissues: Small left apical pneumothorax. Left 6th rib fracture at the costovertebral junction. IMPRESSION: No cervical spine fracture Small left apical pneumothorax Left 6th rib fracture at the costovertebral junction. Dictated by: Bryson Mejía M.D. on 12/10/2020 at 21:55 Approved by: Bryson Mejía M.D. on 12/10/2020 at 21:58 CT scan - chest: Radiologist's Impression: Tony Jon K 25 M [address] [id number] Scan ReportSigned Patient: Tony Jon KMR#: [id number]: 1995Acct:[id number]/Sex: 25 / MDate of Service: 12/10/20Loc: EDAccession Number: [id number] Procedure: CT chest abd pel w con Ordering Provider: [facility] William D.O. PROCEDURE: CT CHEST ABD PEL W CON INDICATIONS: Trauma TECHNIQUE: After the administration of intravenous contrast, 5 mm thick sections acquired from the lung apices to the symphysis. 2.5 mm thick coronal and sagittal reformats were acquired. Additional 7 mm thick coronal maximum intensity projection (MIP) reformats acquired through the lungs. Optional 10-minute delayed imaging may be performed from the kidneys to the bladder. For radiation dose reduction, the following was used: automated exposure control, adjustment of mA and/or kV according to patient size. COMPARISON: None. FINDINGS: Image quality: Excellent. CHEST: Lungs: Small apical left pneumothorax. No pleural effusion. Left patchy opacity in the lower lobe, probably contusion. Mediastinum: No mediastinal hematomas. Heart size is normal. No pericardial effusion. Thoracic aorta and pulmonary arteries demonstrate normal size and enhancement. No mediastinal or hilar adenopathy. Esophagus is normal in caliber. No hiatal hernia. Chest wall: Nondisplaced fracture involving the left 6th rib, at the costovertebral junction image 118/3. ABDOMEN: Solid organs: Liver is normal in size and enhancement, without lacerations. The gallbladder is grossly unremarkable. Biliary system is non-dilated. Pancreas enhances normally, without transection. Spleen is normal in size and enhancement, without lacerations. No adrenal hematomas. Both kidneys enhance normally, without hydronephrosis or lacerations. Peritoneum and bowel: No free fluid or air. Unenhanced bowel loops demonstrate normal wall thickness and caliber. Nodes and vessels: No retroperitoneal or mesenteric adenopathy. Aorta and inferior vena cava are normal in size and enhancement. Miscellaneous: No ventral hernias. PELVIS: Genitourinary: Bladder wall thickness is normal. Miscellaneous: No inguinal hernias or adenopathy. Bones: Pelvic ring and hip joints appear intact. No vertebral compression fractures. IMPRESSION: Nondisplaced left 6th rib fracture at the costovertebral junction. Small apical left pneumothorax. Additional patchy opacity in the left lower l obe probably represents contusion and/or atelectasis. Findings were personally telephoned and discussed with Dr. William in the emergency department at 2200 hours 12/10/20. Chest x-ray: My impression: I honestly can not see the pneumothorax on the chest x- rays. It is clearly visible but very tiny on the chest CT scan. No evidence of significantly blooming pulmonary contusion Radiologist's impression: X-ray last night and this morning both show a tiny left apical pneumothorax, without significant change between the 2 films Shoulder x-ray: My impression: I discussed this with the orthopedic surgeon on-call, who felt that the AC separation was relatively minor Radiologist's impression: AC separation Labs Result Diagrams: 12/13/20 04:40 12/13/20 04:40 Labs: Laboratory Results - last 24 hr 12/13/20 12/13/20 04:40 04:40 WBC 7.2 RBC 4.33 L Hgb 13.4 L Hct 40.0 L MCV 92.3 MCH 30.9 MCHC 33.5 RDW 13.4 Plt Count 248 Neut % (Auto) 53.9 Lymph % (Auto) 29.2 [place] % (Auto) 12.0 Eos % (Auto) 4.1 H Baso % (Auto) 0.8 Neut # (Auto) 3900 Lymph # (Auto) 2100 [place] # (Auto) 900 Eos # (Auto) 300 Baso # (Auto) 100 Sodium 137 Potassium 4.7 Chloride 102 Carbon Dioxide 35 H BUN 16 Creatinine 1.11 Estimated GFR > 60.0 BUN/Creatinine Ratio 14.4 Glucose 95 Calcium 8.5 Magnesium 2.0 PFSH Social History household members: friend(s) Smoking Status: Never smoker alcohol intake: former Discharge Assessment & Plan Assessment and Plan Assessment: Pt with multiple traumatic injuries, now with stable vitals, pain controlled with PO pain meds, and deemed medically stable by my assessment for DC home. Per PT is safe for DC home and home PT as well. Plan of Treatment: Pain control, PT, IS, Pulm toilet, no strenuous activity or driving until follow up. Discharge Plan Discharge Plan Patient Disposition: Home Provider Discharge Comment: Because your insurance is [employer] we were not able to make you a direct referral to outpatient physical therapy. [place]. I recommend that you not return to work until you are off pain medication and muscle relaxers, and after you have seen Dr. Kaplan or Dr. Vogel in follow-up. You will be prescribed a narcotic pain medication. You use Ibuprofen as well as Tylenol/Acetaminophen for pain, to reduce the amount of narcotic pain medication and muscle relaxer that you need to take. Ibuprofen and Acetaminophen have two different modes of action and can be taken simultaneously at the full dose of each. Together they will have a compounding effect and significantly increase your pain control. Make sure you do not take more than 3000 mg of Acetaminophen per day from any source. There may be Acetaminophen in cold medications or headache remedies. Using an NSAID such as Ibuprofen helps with inflammation. Do not take more than recommended on the packaging instructions, and avoid taking it if it causes stomach upset, you have a history of GI bleed, or a history of kidney dysfunction. You may also use an ice pack for pain and inflammation. Many patients significantly reduce or avoid entirely using narcotic pain medication altogether by using Acetaminophen 1000mg three times per day, and Ibuprofen 800mg three times per day. Make sure to take these medications with food. Make sure to take a stool softener to prevent constipation from the narcotic pain medication. If you are not able have a bowel movement within 24 hours, or you feel constipated please take an additional laxative such as MiraLax or Senna. Avoid any straining on the toilet. Activity: Closely follow the physical therapy recommendations and enclosed instructions regarding physical activity. No return to work until released by the surgeon. Discharge orders & Medications Prescriptions: New oxycodone 5 mg tablet 15 mg PO Q4H PRN (Reason: pain from traumatic rib fracture and AC separation) Qty: 30 RF: 0 cyclobenzaprine 5 mg tablet 5 mg PO TID PRN (Reason: muscle spasm associated with trauma) Qty: 20 RF: 0 Continued bupropion HCl [Wellbutrin XL] 150 mg Tablet Extended Release 24 Hr 150 mg PO QAM RF: 0 Follow up/Referrals: Josee Kaplan MD [Physician] - (Please call [facility] make a follow-up appointment with Dr. Kaplan or Dr. Vogel next week. Please call your primary doctor make a follow-up appointment this week.) Diet/Activity/Treatments Diet: Diet as Tolerated Activity: Avoid making important decisions, driving a car, operating heavy machinery while your taking narcotic pain medications and muscle relaxers. Visit Report/Discharge Packet Instructions: DI for Pneumothorax, DI for Rib Fracture, DI for Prescription Opioid Use, DI for AC Joint Separation Quality VTE Deep Vein Thrombosis/Pulmonary Embolism Present on Admission: No
--- NOTE | 2020-12-13 12:50 | PC.NURSE ---
Plan for d/c to home today. Pt is agreeable to plan. Pt reports pain is at a tolerable level with PO Rx. D/c education provided to pt regarding dx, medications, activity restrictions, work restrictions, diet, need for f/u care with PCP and [facility]. Reinforced teaching re use of IS and pulmonary toilet. He verbalizes understanding and is in the process of making appointments with PCP at [facility]. He understands that he needs a referral for physical therapy. 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 Removed PIV with cath tip intact. Gathered all of pts belongings and sent with pt. Pt was escorted to POV (friend driving) via w/c by [facility] in no distress.
== END 2020-12-13 12:40 | disposition home or self-care (01) | DRG 200 ==
LOC: ED 22:13 → ICU 12-11 09:01 → AC 12-11 13:00
PROVIDERS: Admitting Provider Surgery; Emergency Provider Emergency Medicine; Referring Provider Emergency Medicine; Visit Provider Surgery
DX: S27.0XXA Traumatic pneumothorax, initial encounter (principal); S22.32XA Fracture of one rib, left side, initial encounter for closed fracture; S27.321A Contusion of lung, unilateral, initial encounter; S43.102A Unspecified dislocation of left acromioclavicular joint, initial encounter; M25.552 Pain in left hip; W10.8XXA Fall (on) (from) other stairs and steps, initial encounter; Z20.822 Contact with and (suspected) exposure to COVID-19
CPT/HCPCS: 36415; 70450; 71045; 71046; 71260; 72125; 73030; 74177; 80048; 80053; 80320; 81003; 82550; 82553; 83690; 83735; 84484; 85025; 85610; 86850; 86900; 86901; 87635; 87797; 93005; 94762; 96374; 96375; 97116; 97162; 99222; 99231; 99238; 99284; 99291; 99292; C9803; J1170; J1200; J1650; J2405; Q9967

== ENCOUNTER → 2020-12-15 11:30 | Outpatient (CLI) | payer OTHER, SELFPAY ==
[2020-12-10 23:52] VITALS: BMI 26.3
--- NOTE | 2020-12-15 11:32 | DI.RAD.S_ITS ---
PROCEDURE: XR CHEST 1V INDICATIONS: pneumothorax TECHNIQUE: One view of the chest was acquired. COMPARISON: [facility], CR, XR CHEST 1V, 12/12/2020, 7:17. [facility], CR, XR CHEST 1V, 12/13/2020, 5:34. FINDINGS: Surgical changes and devices: None. Lungs and pleura: Hazy opacities noted in the lung bases bilaterally likely represents atelectasis given the degree of lung inflation. No pleural effusions or pneumothorax. Mediastinum: Mediastinal contours appear normal. Heart size is normal. Bones and chest wall: No suspicious bony lesions. Overlying soft tissues appear unremarkable. IMPRESSION: 1. No pneumothorax identified in the current study. 2. Hazy opacities in the lung bases bilaterally likely representing atelectasis, however finding is nonspecific and other etiologies including developing pneumonia could produce a similar appearance. Please correlate with clinical and laboratory data. Dictated by: Tessie Castellanos MD, PhD on 12/15/2020 at 11:47 Approved by: Tessie Castellanos MD, PhD on 12/15/2020 at 11:50
== END ==
PROVIDERS: Referring Provider Surgery; Visit Provider Surgery
DX: S27.0XXA Traumatic pneumothorax, initial encounter (principal); S22.32XA Fracture of one rib, left side, initial encounter for closed fracture; S27.321A Contusion of lung, unilateral, initial encounter; M25.559 Pain in unspecified hip; S43.102A Unspecified dislocation of left acromioclavicular joint, initial encounter; W19.XXXA Unspecified fall, initial encounter; Y92.009 Unspecified place in unspecified non-institutional (private) residence as the place of occurrence of the external cause
CPT/HCPCS: 71045; 99215

== ENCOUNTER 2021-01-05 17:03 | Emergency (ER) | payer OTHER, SELFPAY ==
[2020-12-28 15:38] VITALS: BMI 26.3
[2021-01-05 17:08] VITALS: BP 139/64; PULSE 92; RESP 12; TEMP 36.4; O2SAT 99
--- NOTE | 2021-01-05 17:29 | ED.RECABL ---
HPI - Recheck/Abnormal Lab/Rx General Chief Complaint: Recheck/Abnormal Lab/Rx Stated Complaint: sent by health dept, STD exposure Time Seen by Provider: 01/05/21 17:14 Source: patient Mode of arrival: Ambulatory Limitations: no limitations History of Present Illness HPI narrative: Patient is a 25-year-old male. He states he has had a history of chlamydia in the past for which he was treated elbow this was several years ago. He states that he was contacted by the [facility] stating that he was exposed to someone who tested positive for chlamydia. He states he has had 2 partners over the past several weeks. Both of which were vaginal intercourse without protection. He does not know what he was exposed to is the health department would not tell him. He denies any symptoms. Related Data Home Medications Medication Instructions Recorded Confirmed bupropion HCl [Wellbutrin XL] 150 mg PO QAM 12/10/20 12/29/20 Previous Rx's Medication Instructions Recorded cyclobenzaprine 5 mg PO TID PRN #20 tab 12/13/20 oxycodone 15 mg PO Q4H PRN #30 tab 12/13/20 acetaminophen 500 mg tablet 1,000 mg PO Q8H #180 tab 12/15/20 cyclobenzaprine 5 mg tablet 5 mg PO TID PRN #30 tab 12/15/20 gabapentin 300 mg capsule 300 mg PO BID #30 cap 12/15/20 oxycodone 5 mg capsule See Rx Instructions PO Q4H PRN #40 12/15/20 cap ibuprofen 800 mg tablet 800 mg PO TID #90 tab 12/29/20 oxycodone 5 mg tablet 10 mg PO BID PRN #30 tab 12/29/20 Allergies Allergy/AdvReac Type Severity Reaction Status Date / Time No Known Drug Allergies Allergy Verified 01/05/21 17:11 Review of Systems Constitutional Constitutional: Denies fever(s) Gastrointestinal Gastrointestinal: Denies abdominal pain Genitourinary Genitourinary: Denies dysuria Genitourinary: Denies dysuria Integumentary/Breasts Skin/Breast: Denies rash Neurologic Neurologic: Denies behavioral changes Psychiatric Psychiatric: Denies behavioral changes Hematologic/Lymphatic On Anticoagulants: No Allergic/Immunologic Allergic/Immunologic: Denies urticaria Patient History Medical History AC separation Closed rib fracture Contusion of left lung Pneumothorax Social History household members: friend(s) Smoking Status: Never smoker alcohol intake: former Smoking Status: Never smoker alcohol intake frequency: 0-2 drinks per day Substance Use Type: does not use Exam Initial Vital Signs Initial Vital Signs: Vital Signs Temperature 97.6 F 01/05/21 17:08 Pulse Rate 92 H 01/05/21 17:08 Respiratory Rate 12 01/05/21 17:08 Blood Pressure 139/64 01/05/21 17:08 Pulse Oximetry 99 01/05/21 17:08 Const General: cooperative and comfortable Resp Effort & Inspection: normal respiratory effort Cardio Rate: regular rate GI Inspection: non-distended Skin Lesions: no lesions Rashes: no rashes Neuro General: patient alert and patient awake Extrem General: capillary refill normal Course Vital Signs Vital signs: Vital Signs - 8 hr 01/05/21 17:08 Temperature 97.6 F Pulse Rate 92 H Respiratory Rate 12 Blood Pressure 139/64 Pulse Oximetry 99 MDM - Recheck/Abnormal Lab/Rx MDM Narrative Medical decision making narrative: Had a long discussion with the patient regarding his risks in his symptoms. He was able to contact 1 of the sexual partners that he had had recently and he was told that she tested positive for chlamydia. He is not having any symptoms. I discussed options to include presumptively treating him with antibiotics given his exposure versus testing him and waiting for the results. Patient opted to be tested. Informed him that he should remain abstinent for the next 7-10 days and ideally would have a test of cure. He expressed understanding of this. Discharge Plan Departure Patient Disposition: Home Clinical Impression: Exposure to chlamydia Instructions: Facts About Sexually Transmitted Infections, How to Detect and Treat STDs Activity Restrictions/Additional Instructions: After discussion you opted to be treated for chlamydia given your exposure history rather than waiting for a test to resolved. You are to remain abstinent for the next 7-10 days. Contact your primary provider for follow-up. Return to the emergency department for any new or worsening symptoms Prescriptions: No Action acetaminophen [Tylenol Extra Strength] 500 mg tablet 1,000 mg PO Q8H Qty: 180 RF: 0 cyclobenzaprine 5 mg tablet 5 mg PO TID PRN (Reason: muscle spasm) Qty: 30 RF: 0 oxycodone 5 mg capsule See Rx Instructions PO Q4H PRN (Reason: pain) Qty: 40 RF: 0 gabapentin 300 mg capsule 300 mg PO BID Qty: 30 RF: 0 oxycodone 5 mg tablet 10 mg PO BID PRN (Reason: rib fracture pain) Qty: 30 RF: 0 ibuprofen 800 mg tablet 800 mg PO TID Qty: 90 RF: 0 bupropion HCl [Wellbutrin XL] 150 mg Tablet Extended Release 24 Hr 150 mg PO QAM RF: 0 oxycodone 5 mg tablet 15 mg PO Q4H PRN (Reason: pain from traumatic rib fracture and AC separation) Qty: 30 RF: 0 cyclobenzaprine 5 mg tablet 5 mg PO TID PRN (Reason: muscle spasm associated with trauma) Qty: 20 RF: 0
[2021-01-05] MEDS: AZITHROMYCIN 250 MG TABLET 1000 MG PO (17:48)
[2021-01-05 17:56] VITALS: BP 132/64; PULSE 85; RESP 12; O2SAT 98
--- NOTE | 2021-01-05 18:13 | PC.NURSE ---
Patient was placed on a med hold for 15 minutes and stated that he was not having any acute symptoms of an allergic reaction and was discharged
== END 2021-01-05 18:14 | disposition home or self-care (01) ==
PROVIDERS: Emergency Provider Emergency Medicine
DX: Z20.2 Contact with and (suspected) exposure to infections with a predominantly sexual mode of transmission (principal)
CPT/HCPCS: 99283

== ENCOUNTER → 2021-05-04 15:06 | Outpatient (CLI) | payer OTHER, SELFPAY ==
[2020-12-28 15:38] VITALS: BMI 26.3
[2021-05-04 16:55] LABS: COVID19 -Nasal RAPID Negative (Negative)
== END ==
PROVIDERS: Referring Provider Internal Medicine; Visit Provider Internal Medicine
DX: Z20.822 Contact with and (suspected) exposure to COVID-19 (principal)
CPT/HCPCS: 87635; C9803

== ENCOUNTER → 2021-05-05 07:12 | Outpatient (CLI) | payer OTHER, SELFPAY ==
[2020-12-28 15:38] VITALS: BMI 26.3
--- NOTE | 2021-05-10 10:13 | PM.PFT.1 ---
Pulmonary Function Test Referral & Results Date Patient Seen: 05/05/21 Requesting provider: Kenan Perez Indication: Traumatic pneumothorax Results: The spirometry demonstrates an FVC of 6.94 L which is 111% of predicted. The FEV1 was measured at 5.12 L which is 100% of predicted. The FEV1/FVC ratio was 74 which is 88% of predicted. Following the administration of bronchodilator there was 11% improvement in FEV1 and a 46% improvement in FEF 25-75%. Lung volumes show an SVC of 7.03 L which is 117% of predicted. The diffusing capacity was measured at 37.70 which is 99% of predicted. The maximum voluntary ventilation was normal Interpretation: This study demonstrates normal pulmonary function
== END ==
DX: S27.0XXA Traumatic pneumothorax, initial encounter (principal); J98.8 Other specified respiratory disorders
CPT/HCPCS: 94060; 94726; 94729

== ENCOUNTER 2021-07-31 15:41 | Emergency (ER) | payer OTHER, SELFPAY ==
[2020-12-28 15:38] VITALS: BMI 26.3
[2021-07-31 15:43] VITALS: BP 124/65; PULSE 61; RESP 18; TEMP 36.8; O2SAT 99
--- NOTE | 2021-07-31 16:42 | ED_ITS ---
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 Patient states that yesterday he was out of town. He states that he was working out with his friends. They started screaming around and he fell landing on his right shoulder. He was seen at a facility near where the injury occurred. He was told that he had a clavicle fracture. He was placed in a sling. He does have the x-rays on a CD. 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 Related Data Home Medications Medication Instructions Recorded Confirmed bupropion HCl 150 mg 24 hr tablet, 150 mg PO QAM 12/10/20 01/24/21 extended release (Wellbutrin XL) Previous Rx's Medication Instructions Recorded cyclobenzaprine 5 mg tablet 5 mg PO TID PRN #20 tab 12/13/20 oxycodone 5 mg tablet 15 mg PO Q4H PRN #30 tab 12/13/20 acetaminophen 500 mg tablet 1,000 mg PO Q8H #180 tab 12/15/20 (Tylenol Extra Strength) cyclobenzaprine 5 mg tablet 5 mg PO TID PRN #30 tab 12/15/20 gabapentin 300 mg capsule 300 mg PO BID #30 cap 12/15/20 oxycodone 5 mg capsule See Rx Instructions PO Q4H PRN #40 12/15/20 cap ibuprofen 800 mg tablet 800 mg PO TID #90 tab 12/29/20 oxycodone 5 mg tablet 10 mg PO BID PRN #30 tab 12/29/20 Allergies Allergy/AdvReac Type Severity Reaction Status Date / Time No Known Drug Allergies Allergy Verified 01/24/21 13:13 Review of Systems Respiratory Respiratory: Reports system reviewed and no additional complaints, except as documented Musculoskeletal Comments: Right shoulder pain Integumentary/Breasts Skin/Breast: Reports system reviewed and no additional complaints, except as documented Neurologic Neurologic: Reports system reviewed and no additional complaints, except as documented Patient History Medical History AC separation Closed rib fracture Contusion of left lung Pneumothorax Social History household members: friend(s) Smoking Status: Never smoker alcohol intake: former Smoking Status: Never smoker alcohol intake frequency: 0-2 drinks per day Substance Use Type: does not use Exam Initial Vital Signs Initial Vital Signs: Vital Signs Temperature 98.2 F 07/31/21 15:43 Pulse Rate 61 07/31/21 15:43 Respiratory Rate 18 07/31/21 15:43 Blood Pressure 124/65 07/31/21 15:43 Pulse Oximetry 99 07/31/21 15:43 HENMT Head: normal to inspection and normocephalic Resp Effort & Inspection: normal respiratory effort Auscultation: clear to auscultation bilaterally Cardio Rate: regular rate Pulses: radial pulses present on the right Skin General: no rashes or lesions noted Neuro Sensory Exam: no sensory deficits noted Extrem Other: Patient's right wrist and right elbow unremarkable. He can move his right shoulder but has quite a bit of discomfort. Does have swelling around his right clavicle in tenderness palpation over his right Course Vital Signs Vital signs: Vital Signs - 8 hr 07/31/21 15:43 07/31/21 16:51 Temperature 98.2 F Pulse Rate 61 49 L Respiratory Rate 18 16 Blood Pressure 124/65 143/78 H Pulse Oximetry 99 96 MDM - Recheck/Abnormal Lab/Rx MDM Narrative Medical decision making narrative: Patient is neurovascularly intact. Patient is already had x-rays and has those x-rays on a CD. No further imaging needed here in the emergency department. I did inform him that he needed to talk with his medical department about follow-up with orthopedics. He was given information for our local civilian Orthopedic Department. He has a sling in place. Was given return precautions and follow-up instructions. He expressed agreement plan. Discharge Plan Departure Patient Disposition: Home Clinical Impression: Clavicle fracture Instructions: Clavicle Fracture Activity Restrictions/Additional Instructions: Tomorrow you do need to show up at the Orthopedic Department on the [facility]. They will be able to see you and work on the referral process. If you do not want to see the orthopedic providers on the [facility] base that you will most likely need a referral from your medical department and have a cleared by [facility]. Once this is done you can contact the local Orthopedic Department at the number provided below. Any work related restrictions will need to come from your medical department. Prescriptions: No Action acetaminophen [Tylenol Extra Strength] 500 mg tablet 1,000 mg PO Q8H Qty: 180 RF: 0 cyclobenzaprine 5 mg tablet 5 mg PO TID PRN (Reason: muscle spasm) Qty: 30 RF: 0 oxycodone 5 mg capsule See Rx Instructions PO Q4H PRN (Reason: pain) Qty: 40 RF: 0 gabapentin 300 mg capsule 300 mg PO BID Qty: 30 RF: 0 oxycodone 5 mg tablet 10 mg PO BID PRN (Reason: rib fracture pain) Qty: 30 RF: 0 ibuprofen 800 mg tablet 800 mg PO TID Qty: 90 RF: 0 bupropion HCl [Wellbutrin XL] 150 mg Tablet Extended Release 24 Hr 150 mg PO QAM RF: 0 oxycodone 5 mg tablet 15 mg PO Q4H PRN (Reason: pain from traumatic rib fracture and AC separation) Qty: 30 RF: 0 cyclobenzaprine 5 mg tablet 5 mg PO TID PRN (Reason: muscle spasm associated with trauma) Qty: 20 RF: 0 Referrals: Josep Caceres MD [Physician] - Kenan Perez DO [Primary Care Provider] -
[2021-07-31 16:51] VITALS: BP 143/78; PULSE 49; RESP 16; O2SAT 96
== END 2021-07-31 16:51 | disposition home or self-care (01) ==
PROVIDERS: Emergency Provider Emergency Medicine
DX: S42.001A Fracture of unspecified part of right clavicle, initial encounter for closed fracture (principal); W19.XXXA Unspecified fall, initial encounter
CPT/HCPCS: 99281